=== PATIENT | female | born 1935 | race Caucasian/White ===

== ENCOUNTER 2020-03-08 09:34 | Outpatient (REF) | payer MEDICARE, OTHER, SELFPAY ==
[2020-03-08 10:48] LABS: Anion Gap 13 (12-20); Carbon Dioxide 31 mmol/L (22-29); Chloride 103 mmol/L (96-108); Potassium 3.6 mmol/l (3.3-5.1); Sodium 143 mmol/L (135-145)
== END 2020-03-08 09:35 | disposition home or self-care (01) ==
LOC: HO.10HDL 09:34
PROVIDERS: Visit Provider Internal Medicine
DX: E87.8 Other disorders of electrolyte and fluid balance, not elsewhere classified (principal)
CPT/HCPCS: 80051

== ENCOUNTER 2020-06-07 13:41 | Outpatient (REF) | payer MEDICARE, OTHER, SELFPAY ==
[2020-06-07 13:58] LABS: COVID-19 Test Negative (Negative)
== END 2020-06-07 13:42 | disposition home or self-care (01) ==
LOC: HO.LAB 13:41
PROVIDERS: PCP Internal Medicine; Visit Provider Internal Medicine
DX: Z20.822 Contact with and (suspected) exposure to COVID-19 (principal)
CPT/HCPCS: 36415; 87635; C9803

== ENCOUNTER 2020-12-05 13:01 | Outpatient (REF) | payer MEDICARE, OTHER, SELFPAY ==
--- NOTE | ~2020-12-05 | XR_ITS ---
EXAMINATION: XR SHOULDER, RIGHT XR HAND, RIGHT CLINICAL INFORMATION: Fall. COMPARISON: None TECHNIQUE: AP, Grashey, and scapular Y views of the right shoulder. AP, oblique, and lateral views of the right hand. FINDINGS: RIGHT SHOULDER: No acute fracture or dislocation. Moderate acromioclavicular marginal osteophytes. Small glenohumeral marginal osteophytes. Subacromial spurring. No osseous erosion. RIGHT HAND: No displaced fracture. No dislocation. Severe joint space narrowing with bony remodeling and large marginal osteophytes at the 1st carpometacarpal joint. More moderate osteoarthritis at the triscaphe joint. XR/XR hand RT min 3V IMPRESSION: Right shoulder: No acute fracture or dislocation. Moderate acromioclavicular and mild glenohumeral osteoarthritis. Right hand: No acute fracture or dislocation. Severe osteoarthritis at the 1st carpometacarpal joint with more moderate osteoarthritis at the triscaphe joint.
--- NOTE | ~2020-12-05 | XR_ITS ---
EXAMINATION: XR SHOULDER, RIGHT XR HAND, RIGHT CLINICAL INFORMATION: Fall. COMPARISON: None TECHNIQUE: AP, Grashey, and scapular Y views of the right shoulder. AP, oblique, and lateral views of the right hand. FINDINGS: RIGHT SHOULDER: No acute fracture or dislocation. Moderate acromioclavicular marginal osteophytes. Small glenohumeral marginal osteophytes. Subacromial spurring. No osseous erosion. RIGHT HAND: No displaced fracture. No dislocation. Severe joint space narrowing with bony remodeling and large marginal osteophytes at the 1st carpometacarpal joint. More moderate osteoarthritis at the triscaphe joint. XR/XR shoulder RT min 2V IMPRESSION: Right shoulder: No acute fracture or dislocation. Moderate acromioclavicular and mild glenohumeral osteoarthritis. Right hand: No acute fracture or dislocation. Severe osteoarthritis at the 1st carpometacarpal joint with more moderate osteoarthritis at the triscaphe joint.
== END 2020-12-05 13:02 | disposition home or self-care (01) ==
LOC: HO.HMGCX 13:01
PROVIDERS: PCP Internal Medicine; Visit Provider Internal Medicine
DX: M19.041 Primary osteoarthritis, right hand (principal); M19.011 Primary osteoarthritis, right shoulder; Z91.81 History of falling
CPT/HCPCS: 73030; 73130

== ENCOUNTER 2021-05-18 10:25 | Emergency (ER) | payer MEDICARE, OTHER, SELFPAY ==
[2021-05-18] VITALS (8 sets, daily range): BP systolic 132–162; BP diastolic 60–71; PULSE 85–110; RESP 16–20; TEMP 36.6–36.8; O2SAT 95–99; BMI 25.8
--- NOTE | ~2021-05-18 | XR_ITS ---
EXAMINATION: XR CHEST CLINICAL INFORMATION: Dizzy. Fall. COMPARISON: Chest radiograph 09/09/2016. TECHNIQUE: Frontal view of the chest was obtained. FINDINGS: The heart size is normal. An aortic composite stent graft is noted. No effusions or pneumothoraces. No focal pulmonary consolidation. Normal pattern of pulmonary vasculature. Diffuse osteopenia. Suture anchors within the left humeral head. Partially visualized cholecystectomy clips. XR/XR chest 1V IMPRESSION: *No acute cardiopulmonary abnormalities.
--- NOTE | ~2021-05-18 | CT_ITS ---
EXAMINATION: CT CERVICAL SPINE WITHOUT CONTRAST; UNENHANCED CT OF THE HEAD. CLINICAL INFORMATION: Fall. Dizziness. COMPARISON: MRI brain 01/19/2020. TECHNIQUE: Routine unenhanced CT of the head with multiple coronal and sagittal reformatted images; routine unenhanced CT of the cervical spine with multiple coronal and sagittal reformatted images. This CT examination was performed using dose optimization techniques as appropriate, variously including the following: *Automated exposure control *Adjustment of mA and/or kV according to patient size (this includes techniques or standardized protocols for targeted exams where dose is matched to indication/reason for exam; i.e. extremities or head) *Use of iterative reconstruction technique DLP: 912 mGy-cm FINDINGS: CT head: Moderate diffuse commensurate prominence of ventricles and sulci is noted. Mild subcortical and periventricular white matter patchy hypodensities are visualized. No intrarenal hemorrhage, tumors or acute infarcts are noted. Bilateral ocular lens extractions. No mastoid effusions. CT cervical spine: No fractures or acute appearing subluxations. Multilevel intervertebral disc space narrowing facet hypertrophy and endplate osteophytosis with moderate findings noted at C5-C6 and C6-C7 which are more pronounced than elsewhere in the cervical spine. The visualized lung apices are clear. Dense bilateral carotid bulb calcific atherosclerotic plaques. CT/CT head/brain wo con IMPRESSION: CT head: *No acute intracranial abnormalities. *Diffuse parenchymal volume loss and chronic small vessel ischemic changes. CT cervical spine: *No acute abnormalities. *Moderate multilevel chronic spondylosis. *Dense bilateral carotid bulb calcific atherosclerosis.
--- NOTE | ~2021-05-18 | CT_ITS ---
EXAMINATION: CT CERVICAL SPINE WITHOUT CONTRAST; UNENHANCED CT OF THE HEAD. CLINICAL INFORMATION: Fall. Dizziness. COMPARISON: MRI brain 01/19/2020. TECHNIQUE: Routine unenhanced CT of the head with multiple coronal and sagittal reformatted images; routine unenhanced CT of the cervical spine with multiple coronal and sagittal reformatted images. This CT examination was performed using dose optimization techniques as appropriate, variously including the following: *Automated exposure control *Adjustment of mA and/or kV according to patient size (this includes techniques or standardized protocols for targeted exams where dose is matched to indication/reason for exam; i.e. extremities or head) *Use of iterative reconstruction technique DLP: 912 mGy-cm FINDINGS: CT head: Moderate diffuse commensurate prominence of ventricles and sulci is noted. Mild subcortical and periventricular white matter patchy hypodensities are visualized. No intrarenal hemorrhage, tumors or acute infarcts are noted. Bilateral ocular lens extractions. No mastoid effusions. CT cervical spine: No fractures or acute appearing subluxations. Multilevel intervertebral disc space narrowing facet hypertrophy and endplate osteophytosis with moderate findings noted at C5-C6 and C6-C7 which are more pronounced than elsewhere in the cervical spine. The visualized lung apices are clear. Dense bilateral carotid bulb calcific atherosclerotic plaques. CT/CT cervical spine wo con IMPRESSION: CT head: *No acute intracranial abnormalities. *Diffuse parenchymal volume loss and chronic small vessel ischemic changes. CT cervical spine: *No acute abnormalities. *Moderate multilevel chronic spondylosis. *Dense bilateral carotid bulb calcific atherosclerosis.
--- NOTE | 2021-05-18 10:45 | ECG_ITS ---
Test Reason : fall Blood Pressure : / mmHG Vent. Rate : 087 BPM Atrial Rate : 087 BPM P-R Int : 124 ms QRS Dur : 128 ms QT Int : 428 ms P-R-T Axes : 040 012 046 degrees QTc Int : 515 ms Normal sinus rhythm Left bundle branch block Abnormal ECG No previous ECGs available Referred By: Catia Post Electronically Signed By:Elvis Webb
--- NOTE | 2021-05-18 10:48 | ED.FALL ---
HPI - Fall General Chief Complaint: Fall Stated Complaint: Fall Time Seen by Provider: 05/18/21 10:33 Source: patient and EMS Mode of arrival: EMS History of Present Illness HPI Narrative: 86-year-old female with a past medical history of HTN, HLD, migraines, degenerative joint disease, depression, GERD, on 81 mg of ASA daily, BIBA c/o episode of room spinning dizziness followed by fall [employer] SCI[employer] after using bathroom this morning with suspected head injury, no LOC. Patient reports neck and back pain, generalized weakness and dysuria. Admits was up using the bathroom then stood took couple steps, felt dizzy and fell, admits to similar symptoms in the past with UTI and vertigo. Admits dizziness intermittent with head movement, resolves with lying still. Denies headache, vision changes, CP/ SOB, urinary incontinence / retention, abdominal pain, nausea/ vomiting. Has not been ambulatory since incident, states baseline unable to get herself off ground MD complaint: fall Onset (ago): hour(s) Fall from: standing Related Data Home Medications Medication Instructions Recorded Confirmed uxpskrpksh-abzmunumwcsuz-pvmhqthp tab PO 05/18/21 50 mg-325 mg-40 mg tablet citalopram 10 mg tablet 1 tab PO DAILY 05/18/21 05/18/21 furosemide 40 mg tablet 1 tab PO DAILY 05/18/21 05/18/21 hydrocodone 7.5 mg-acetaminophen 1 tab PO TID PRN 05/18/21 05/18/21 325 mg tablet lorazepam 0.5 mg tablet 1 tab PO DAILY PRN 05/18/21 05/18/21 metoprolol succinate 50 mg 1 tab PO DAILY 05/18/21 tablet,extended release 24 hr omeprazole 20 mg capsule,delayed 1 cap PO DAILY 05/18/21 05/18/21 release oxybutynin chloride 15 mg mg PO 05/18/21 tablet,extended release 24 hr potassium chloride 10 mEq 1 tab PO DAILY 05/18/21 05/18/21 tablet,extended release rosuvastatin 10 mg tablet 1 tab PO BEDTIME 05/18/21 05/18/21 Previous Rx's Medication Instructions Recorded meclizine 25 mg tablet 25 mg PO TID PRN #14 tab 05/18/21 Allergies Allergy/AdvReac Type Severity Reaction Status Date / Time acetaminophen Allergy Unknown rapid Verified 09/22/18 00:00 [Tylenol-Codeine] heartbeat codeine [CODEINE] Allergy Unknown TACHYCARDIC Unverified 02/08/20 18:44 imipramine [IMIPRAMINE] Allergy Unknown RASH Unverified 02/08/20 18:44 Sulfa (Sulfonamide Allergy Unknown rash Verified 09/22/18 00:00 Antibiotics) sulfamethoxazole Allergy Unknown RASH Unverified 02/08/20 18:44 [From BACTRIM] trimethoprim [From BACTRIM] Allergy Unknown RASH Unverified 02/08/20 18:44 meperidine [From DEMEROL] AdvReac Unknown SPACED Unverified 02/08/20 18:44 OUT ,TACHYCARDIC Review of Systems Review of Systems: Constitutional:No Fever, No Chills, No Fatigue, No Malaise ENT/Mouth: No Ear Pain, No Nasal Congestion, No Hoarseness, No sore throat, No Rhinorrhea Eyes: No Eye Pain, No Swelling, No Redness, No Discharge, No Vision Changes Cardiovascular: No Chest Pain, No SOB, No Edema, No Palpitations Respiratory: No Cough, No Dyspnea Gastrointestinal: No Nausea, No Vomiting, No Diarrhea, No Constipation, No Abdominal pain Genitourinary: + Dysuria, No Urinary Frequency, No Hematuria, No Urinary Incontinence/retention, No Urinary Flow Changes Musculoskeletal: + joint pain, No Myalgias, No Joint Swelling Skin: No Skin Lesions, No rash Neuro: + Weakness, No Numbness, No Paresthesias, No Loss of Consciousness, + Dizziness, No Headache Yes all other systems are reviewed and are negative Neurologic: Denies Abnormal speech present [facility] Past Medical History Attestation statement: The following information was validated with the patient. Medical History Aortic valve disease Arthritis Edema Hypertension Surgical History History of back surgery Social History Social History Advance Directives: Yes Advance Directives Information Provided: No Advance Directives on File: No Physical Exam Vital Signs: Vital Signs: Last Vital Signs Temp 97.9 F 05/18/21 10:43 Pulse 89 05/18/21 16:33 Resp 18 05/18/21 16:33 BP 155/66 H 05/18/21 16:33 Pulse Ox 98 05/18/21 16:33 BMI result Body Mass Index 25.8 Const: General: cooperative, healthy appearing and no acute distress Orientation/consciousness: patient oriented x3 Limitations: no limitations HENMT: Head: Yes normal to inspection and Yes atraumatic Ears: hearing grossly normal bilaterally General nose exam: Normal external nose present Face and sinus: Yes normal facial exam Eyes: General: appearance normal, both eyes and all related structures Pupils: Equal, round and reactive pupils present EOM: EOMs intact bilaterally Neck: Other: no midline cervical spinous tenderness/step-off. + Left-sided paraspinal tenderness. C-collar in place Neck: Yes normal visual inspection Chest: Chest palpation & inspection: normal inspection of the chest Resp: Effort & Inspection: normal respiratory effort Auscultation: clear to auscultation bilaterally, no rales, no rhonchi and no wheezes Cardio: Rate: regular rate Heart sounds: S1 normal heart sound present and S2 normal heart sound present GI: Inspection: Yes normal to inspection Palpation (GI): Soft to palpation, nontender, no guarding and not rigid Back/Spine/Pelvis: Other: no midline thoracic/lumbar spinour ttp Skin: Rashes: no rashes Wounds: no wounds Neuro: General: patient oriented x3, tone normal, moves all extremities, no focal motor deficits and CN's II-XI intact bilaterally Cranial nerves: Yes CN's II-XII intact bilaterally and Yes Equal, round and reactive pupils present Cognition (Neuro): normal cognition Speech: No Abnormal speech present Motor exam (neuro): 5/5 motor strength present throughout, Pronator motor function not present and no tremor noted Coordination: fwzbfz-[id number]-makn test normal Romberg Test: Negative Extrem: Other: + chronic bilateral LE edema > Right (chronic) General: Yes normal to inspection Course Course Course Narrative: -1150-- no leukocytosis. H&H 10.1/31.2, lower than priors from 2019 > will obtain occult stool -1244--CT head/brain wo con / CT cervical spine wo con IMPRESSION: CT head: *No acute intracranial abnormalities. *Diffuse parenchymal volume loss and chronic small vessel ischemic changes. ? CT cervical spine: *No acute abnormalities. *Moderate multilevel chronic spondylosis. *Dense bilateral carotid bulb calcific atherosclerosis.? -1246-- initial troponin 52 > will obtain 3 hour repeat. Labs otherwise unremarkable. COVID-19 negative >> brown stool noted on rectal, upon rolling patient/head movement dizziness elicited -occult stool negative -151-- patient ambulating steadily in the ED with walker, denies dizziness at present after Meclizine. Offered PT/ case management as patient lives home alone, patient refused reports children help care for her -1524-- repeat troponin without 50% rise, mi unlikely. On re-evaluation patient asymptomatic. UA negative. Patient is safe for discharge at this time -1616-- patient's son called, reports patient has had multiple falls, more than patient was willing to come forward with during evaluation over the past several days. He reports 3 falls on and 2-3 falls on Wednesday, there is concern for patient safety at home. Pending orthostatic vital signs, son & myself are going to try to convince patient to stay for PT/case management evaluation - orthostatic vital signs negative. Patient now agreeable to stay for PT/case management eval. 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 Dizziness elicited on head movement. Patient reports neck and back pain, generalized weakness and dysuria. On exam vital signs stable, NAD, C-collar in place, no midline spinous tenderness, no focal neuro deficits. Concern for ICH/fractures vs UTI vs metabolic or infectious etiologies vs BPPV vs ACS. lower concern for CVA/TIA plan: EKG, labs, UA, CXR, head/C-spine CT, re-evaluate Medical Records Attestation: I reviewed the patient's medical records. Lab Data Attestation: I reviewed the patient's lab results. Result diagrams: 05/18/21 11:37 05/18/21 11:36 Labs: Lab Results 05/18/21 05/18/21 05/18/21 Range/Units 11:33 11:36 11:36 WBC (4.8-10.8) X10*3/uL RBC (4.20-5.50) X10*6/uL Hgb (12.0-16.0) g/dl Hct (37.0-47.0) % MCV (80.0-98.0) fL MCH (27.0-33.0) pg MCHC (31.0-35.0) g/dl RDW (11.0-16.0) % Plt Count (160-400) X10*3/uL MPV (9.4-12.3) fL Immature Gran % (Auto) (0.0-0.4) % Neut % (Auto) (45-73) % Lymph % (Auto) (20-40) % [place] % (Auto) (2-11) % Eos % (Auto) (0-4) % Baso % (Auto) (0-2) % Lymph # (Auto) (1.2-4.9) X10*3/uL [place] # (Auto) (0.1-1.2) X10*3/uL Eos # (Auto) (0.0-0.4) X10*3/uL Baso # (Auto) (0.0-0.2) X10*3/uL Abs Immat Gran (auto) (0.00-0.03) X10*3/uL Absolute Neuts (auto) (2.0-8.3) x10*3/uL Absolute Nucleated RBC (0.0-0.012) X10*3/uL Nucleated RBC % (auto) (0.0-0.2) /100WBC Sodium 141 (135-145) mmol/L Potassium 4.1 (3.3-5.1) mmol/L Chloride 107 (96-108) mmol/L Carbon Dioxide 26 (22-29) mmol/L Anion Gap 12 (12-20) BUN 21 H (9-16) mg/dL Creatinine 1.01 (0.5-1.4) mg/dL Estim Creat Clear Calc 43.8 Estimated GFR 52 Random Glucose 120 H (60-115) mg/dL Calcium 9.3 (8.4-10.2) mg/dL Magnesium 1.6 (1.6-2.6) mg/dL Total Bilirubin 0.8 (0.0-1.0) mg/dL Direct Bilirubin 0.4 (0.0-0.5) mg/dL AST 23 (5-31) U/L ALT 19 (0-31) U/L Alkaline Phosphatase 82 (39-117) U/L Troponin I High Sens 52.0 H* (<3.5-17.0) ng/L B-Natriuretic Peptide 42 (<100) pg/mL Total Protein 6.4 L (6.5-8.0) g/dL Albumin 3.5 (3.5-5.0) g/dL Urine Color Urine Appearance Urine pH (5.0-8.0) Ur Specific [place] (1.005-1.025) Urine Protein (NEG-TRACE) MG/DL Urine Glucose (UA) (NEG) MG/DL Urine Ketones (NEG) MG/DL Urine Blood (NEG) Urine Nitrite (NEG) Ur Leukocyte Esterase (NEG) Stool Occult Blood (NEGATIVE) COVID-19 (ELIANE) Negative (Negative) COVID-19 Clin Com See Note 05/18/21 05/18/21 05/18/21 Range/Units 11:37 12:54 14:54 WBC 7.4 (4.8-10.8) X10*3/uL RBC 3.50 L (4.20-5.50) X10*6/uL Hgb 10.1 L (12.0-16.0) g/dl Hct 31.2 L (37.0-47.0) % MCV 89.1 (80.0-98.0) fL MCH 28.9 (27.0-33.0) pg MCHC 32.4 (31.0-35.0) g/dl RDW 14.8 (11.0-16.0) % Plt Count 208 (160-400) X10*3/uL MPV 8.8 L (9.4-12.3) fL Immature Gran % (Auto) 0.3 (0.0-0.4) % Neut % (Auto) 73.0 (45-73) % Lymph % (Auto) 11.9 L (20-40) % [place] % (Auto) 11.3 H (2-11) % Eos % (Auto) 3.1 (0-4) % Baso % (Auto) 0.4 (0-2) % Lymph # (Auto) 0.9 L (1.2-4.9) X10*3/uL [place] # (Auto) 0.8 (0.1-1.2) X10*3/uL Eos # (Auto) 0.2 (0.0-0.4) X10*3/uL Baso # (Auto) 0.0 (0.0-0.2) X10*3/uL Abs Immat Gran (auto) 0.02 (0.00-0.03) X10*3/uL Absolute Neuts (auto) 5.4 (2.0-8.3) x10*3/uL Absolute Nucleated RBC 0.000 (0.0-0.012) X10*3/uL Nucleated RBC % (auto) 0.0 (0.0-0.2) /100WBC Sodium (135-145) mmol/L Potassium (3.3-5.1) mmol/L Chloride (96-108) mmol/L Carbon Dioxide (22-29) mmol/L Anion Gap (12-20) BUN (9-16) mg/dL Creatinine (0.5-1.4) mg/dL Estim Creat Clear Calc Estimated GFR Random Glucose (60-115) mg/dL Calcium (8.4-10.2) mg/dL Magnesium (1.6-2.6) mg/dL Total Bilirubin (0.0-1.0) mg/dL Direct Bilirubin (0.0-0.5) mg/dL AST (5-31) U/L ALT (0-31) U/L Alkaline Phosphatase (39-117) U/L Troponin I High Sens 53.7 H* (<3.5-17.0) ng/L B-Natriuretic Peptide (<100) pg/mL Total Protein (6.5-8.0) g/dL Albumin (3.5-5.0) g/dL Urine Color Urine Appearance Urine pH (5.0-8.0) Ur Specific [place] (1.005-1.025) Urine Protein (NEG-TRACE) MG/DL Urine Glucose (UA) (NEG) MG/DL Urine Ketones (NEG) MG/DL Urine Blood (NEG) Urine Nitrite (NEG) Ur Leukocyte Esterase (NEG) Stool Occult Blood NEGATIVE (NEGATIVE) COVID-19 (ELIANE) (Negative) COVID-19 Clin Com 05/18/21 Range/Units 14:54 WBC (4.8-10.8) X10*3/uL RBC (4.20-5.50) X10*6/uL Hgb (12.0-16.0) g/dl Hct (37.0-47.0) % MCV (80.0-98.0) fL MCH (27.0-33.0) pg MCHC (31.0-35.0) g/dl RDW (11.0-16.0) % Plt Count (160-400) X10*3/uL MPV (9.4-12.3) fL Immature Gran % (Auto) (0.0-0.4) % Neut % (Auto) (45-73) % Lymph % (Auto) (20-40) % [place] % (Auto) (2-11) % Eos % (Auto) (0-4) % Baso % (Auto) (0-2) % Lymph # (Auto) (1.2-4.9) X10*3/uL [place] # (Auto) (0.1-1.2) X10*3/uL Eos # (Auto) (0.0-0.4) X10*3/uL Baso # (Auto) (0.0-0.2) X10*3/uL Abs Immat Gran (auto) (0.00-0.03) X10*3/uL Absolute Neuts (auto) (2.0-8.3) x10*3/uL Absolute Nucleated RBC (0.0-0.012) X10*3/uL Nucleated RBC % (auto) (0.0-0.2) /100WBC Sodium (135-145) mmol/L Potassium (3.3-5.1) mmol/L Chloride (96-108) mmol/L Carbon Dioxide (22-29) mmol/L Anion Gap (12-20) BUN (9-16) mg/dL Creatinine (0.5-1.4) mg/dL Estim Creat Clear Calc Estimated GFR Random Glucose (60-115) mg/dL Calcium (8.4-10.2) mg/dL Magnesium (1.6-2.6) mg/dL Total Bilirubin (0.0-1.0) mg/dL Direct Bilirubin (0.0-0.5) mg/dL AST (5-31) U/L ALT (0-31) U/L Alkaline Phosphatase (39-117) U/L Troponin I High Sens (<3.5-17.0) ng/L B-Natriuretic Peptide (<100) pg/mL Total Protein (6.5-8.0) g/dL Albumin (3.5-5.0) g/dL Urine Color YELLOW Urine Appearance HAZY Urine pH 6.0 (5.0-8.0) Ur Specific [place] 1.020 (1.005-1.025) Urine Protein NEG (NEG-TRACE) MG/DL Urine Glucose (UA) NEG (NEG) MG/DL Urine Ketones 5 (NEG) MG/DL Urine Blood NEG (NEG) Urine Nitrite NEG (NEG) Ur Leukocyte Esterase NEG (NEG) Stool Occult Blood (NEGATIVE) COVID-19 (ELIANE) (Negative) COVID-19 Clin Com ECG Data Attestation: I personally reviewed and interpreted this ECG as follows: ECG interpretation date: 05/18/21 ECG interpretation time: 11:22 Interpretation: EKG normal sinus rhythm with left bundle-branch block rate of 87, IL interval 124, artifact present. No STEMI Discharge Plan Discharge Clinical Impression: Dizziness, Fall Patient Disposition: Home, Self-Care Instructions: Dizziness (ED), Fall Prevention (ED) Additional Instructions: your blood work, urine, and imaging studies were reassuring today in the emergency department. Please stay hydrated at home please follow-up with your primary care doctor if you develop new constant worsening dizziness, headache, chest pain, shortness of breath, or repeated falls return to the ED immediately take meclizine as needed for dizziness Prescriptions: New meclizine 25 mg tablet 25 mg PO TID PRN (Reason: dizziness) Qty: 14 RF: 0 No Action furosemide 40 mg tablet 1 tab PO DAILY RF: 0 oxybutynin chloride 15 mg tablet extended release 24 hr PO RF: 0 metoprolol succinate 50 mg tablet extended release 24 hr 1 tab PO DAILY RF: 0 citalopram 10 mg tablet 1 tab PO DAILY RF: 0 potassium chloride 10 mEq tablet extended release 1 tab PO DAILY RF: 0 rtfzncnpos-nqwkbmyrcqjit-yqre 50-325-40 mg tablet PO RF: 0 lorazepam 0.5 mg tablet 1 tab PO DAILY PRN (Reason: Anxiety) RF: 0 hydrocodone-acetaminophen 7.5-325 mg tablet 1 tab PO TID PRN (Reason: Pain (Scale Score 4-6)) RF: 0 omeprazole 20 mg capsule,delayed release(DR/EC) 1 cap PO DAILY RF: 0 rosuvastatin 10 mg tablet 1 tab PO BEDTIME RF: 0 Referrals: Efra Sue MD [Primary Care Provider] - 2 days
[2021-05-18 11:41] LABS: MANUAL DIFF FLAG NO
[2021-05-18 11:43] LABS: Basophils Percent Auto 0.4 % (0-2); Eosinophils Absolute Auto 0.2 X10*3/uL (0.0-0.4); Eosinophils Percent Auto 3.1 % (0-4); Hematocrit 31.2 % (37.0-47.0); Hemoglobin 10.1 g/dl (12.0-16.0); Imm Gran Abs Auto 0.02 X10*3/uL (0.00-0.03); Imm Gran Pct Auto 0.3 % (0.0-0.4); Lymphocytes Absolute Auto 0.9 X10*3/uL (1.2-4.9); Lymphocytes Percent Auto 11.9 % (20-40); Mean Corpuscular HGB Conc 32.4 g/dl (31.0-35.0); Mean Corpuscular Hemoglobin 28.9 pg (27.0-33.0); Mean Corpuscular Volume 89.1 fL (80.0-98.0); Mean Platelet Volume 8.8 fL (9.4-12.3); Monocytes Absolute Auto 0.8 X10*3/uL (0.1-1.2); Monocytes Percent Auto 11.3 % (2-11); Neutrophils Absolute Auto 5.4 x10*3/uL (2.0-8.3); Platelet Count 208 X10*3/uL (160-400); Red Cell Distribution Width 14.8 % (11.0-16.0); White Blood Count 7.4 X10*3/uL (4.8-10.8)
[2021-05-18 12:00] LABS: Alanine Aminotransferase 19 U/L (0-31); Albumin Level 3.5 g/dL (3.5-5.0); Alkaline Phosphatase 82 U/L (39-117); Anion Gap 12 (12-20); Aspartate Amino Transferase 23 U/L (5-31); Bilirubin Direct 0.4 mg/dL (0.0-0.5); Bilirubin Total 0.8 mg/dL (0.0-1.0); Blood Urea Nitrogen 21 mg/dL (9-16); Calcium 9.3 mg/dL (8.4-10.2); Carbon Dioxide 26 mmol/L (22-29); Chloride 107 mmol/L (96-108); Creatinine Clr Calc Pharmacy 43.8; Estimated Glomerular Filt Rate 52; Glucose Random 120 mg/dL (60-115); Magnesium 1.6 mg/dL (1.6-2.6); Potassium 4.1 mmol/L (3.3-5.1); Sodium 141 mmol/L (135-145); Total Protein 6.4 g/dL (6.5-8.0)
[2021-05-18 12:02] LABS: COVID-19 Test Negative (Negative)
[2021-05-18 12:15] LABS: B Type Natriuretic Peptide 42 pg/mL (<100)
[2021-05-18 12:59] LABS: OBS Int Ctl Valid YES; OBS1 NEGATIVE (NEGATIVE)
[2021-05-18] MEDS: Meclizine HCl 25 MG TABLET PO (14:05)
[2021-05-18] MEDS: 0.9 % Sodium Chloride 500 ML IV (14:13)
[2021-05-18 15:01] LABS: Appearance Urine HAZY; Color Urine YELLOW; Glucose Urine UA NEG (NEG); Leukocyte Esterase Urine NEG (NEG); Nitrite Urine NEG (NEG); Urine Blood NEG (NEG); Urine Ketones 5 MG/DL (NEG); Urine Protein NEG (NEG-TRACE)
[2021-05-18 15:26] LABS: Troponin-I High Sensitivity 53.7 ng/L (<3.5-17.0)
[2021-05-18] MEDS: oxyCODONE HCl Immed Release 5 MG TABLET PO ×2 (17:30→22:47)
--- NOTE | 2021-05-18 22:41 | PC.NURSE ---
notified that pt is requesting pain medication.
[2021-05-18] MEDS: Acetaminophen 325 MG TABLET 975 MG PO (22:47)
--- NOTE | 2021-05-18 22:51 | PC.NURSE ---
Pt medicated per MAR, assisted into POC.
[2021-05-19 01:20] VITALS: BP 118/47; PULSE 99; RESP 18; TEMP 36.8; O2SAT 95
[2021-05-19 04:35] VITALS: BP 128/58; PULSE 80; RESP 18; TEMP 36.6; O2SAT 97
[2021-05-19 07:48] VITALS: BP 128/58; PULSE 80; O2SAT 97
[2021-05-19 08:41] VITALS: BP 158/70; PULSE 88; RESP 18; O2SAT 98
--- NOTE | 2021-05-19 08:41 | MHC.CM.PN ---
Addendum entered by Greta Taylor 05/19/21 14:10: CM MET WITH PT WHO IS NOW AWARE HER SON IS NOT GOING TO BE PICKING HER UP SHE REPORTS SHE WILL TRY CALLING SOME OTHER FAMILY MEMBERS CM REMINDED HER THAT SHE WILL ONLY HAVE HOME THERAPY A COUPLE DAYS A WEEK AT MOST HOWEVER SHE STILL INSISTS SHE IS GOING HOME. PT WILL DC HOME TODAY WITH [facility] Addendum entered by Greta Taylor 05/19/21 13:47: [facility] IS OFFERING A BED CM CALLED PTS SON, SHITAL [phone]. SHITAL REPORTS HE TRIED TO CALL THE PT AND SHE DID NOT ANSWER CM INFORMED HIM OF BED OFFER AND INFORMED HIM THIS WOULD BE DISCUSSED WITH PT CM INFORMED PT OF BED OFFER, PT REPORTS SHE IS NOT GOING THERE SHE REPORTS SHE IS NOT GOING TO GO TO ANY REHAB AND IS ONLY WILLING TO GO HOME SHE REPORTS SHE DID NOT HAVE HER PHONE CHARGED THAT IS WHY SHE DID NOT ANSWER WHEN SHITAL CALLED SHE PLANS TO CALL SHITAL FOR A RIDE ONCE HER DC PAPERS ARE READY CM CALLED PTS SON BACK TO INFORM HIM OF PTS DECISION SHITAL REPORTS HE IS NOT GOING TO PICK THE PT UP HE DOES NOT FEEL SHE IS MAKING THE SAFEST DECISION HE WILL CALL HER TO INFORM HER CM WILL ALSO INFORM HER AND DISCUSS OTHER TRANSPORT OPTIONS Addendum entered by Greta Taylor 05/19/21 12:47: CM RECEIVED A T/C FROM PTS SON, SHITAL. HE REPORTS THE PT CALLED HIM TO PICK HER UP HOWEVER HE IS WORRIED SHE HAS FALLEN SEVERAL TIMES RECENTLY CM EXPLAINED THE PT HAD ASKED THAT HE NOT BE CONTACTED. SHITAL REPORTS HE WILL CALL THE PT TO FURTHER DISCUSS REHAB, HE ASKS THAT REFERRALS BE PLACED ([facility], [facility]) HE REPORTS THE PT LIVES ALONE AND ALTHOUGH HIS SISTER IS THERE AT THIS TIME, SHE WILL BE LEAVING BY WEDNESDAY, SO THE PT WILL BE ALONE AGAIN CM MADE REQUESTED REFERRALS SHITAL WILL SPEAK TO PT AND THEN UPDATE CM Addendum entered by Greta Taylor 05/19/21 12:21: [facility] UNABLE TO OFFER A BED INDICATING THEY DID NOT FEEL PT IS ELIGIBLE FOR THAT LOC PT INFORMED AND REPORTS SHE IS NOT WILLING TO GO ANYWHERE ELSE SHE REPORTS SHE IS AGREEABLE TO HOME PT PT ALSO REPORTS HER DAUGHTER IS STAYING WITH HER AT THIS TIME SO SOMEONE WILL BE THERE. PT REPORTS SHE WILL CONTACT HER SON TO PICK HER UP WHEN READY PT WILL DC HOME TODAY WITH [facility] FOR PT FAMILY TO TRANSPORT Original Note: CM CONSULT RECEIVED FOR THIS PT WHO PRESENTED AFTER DIZZINESS AND SUBSEQUENT FALL. CM MET WITH PT WHO INITIALLY REPORTED SHE IS NOT WILLING TO GO ANYWHERE BUT HOME CM DISCUSSED SAFETY CONCERNS AND PTS RECOMMENDATION OF ACUTE REHAB PT REPORTS SHE HAS BEEN TO [facility] IN THE PAST AND THEY KEPT HER FOR THREE MONTHS CM EXPLAINED THE DIFFERENCES BETWEEN SHORT TERM AND ACUTE REHAB PT REPORTS SHE WOULD ONLY BE WILLING TO CONSIDER [facility] SHE LIVES IN [place] PT IS AGREEABLE TO A REFERRAL BEING SENT TO [facility].
[2021-05-19] MEDS: Omeprazole 20 MG CAPSULE.DR PO (08:43)
[2021-05-19] MEDS: Furosemide 40 MG TABLET PO (08:43)
[2021-05-19] MEDS: Escitalopram Oxalate 5 MG TABLET PO (08:43)
[2021-05-19] MEDS: HYDROcodone Bit/Acetam 7.5/325 TABLET 1 TAB PO ×2 (08:49→20:39)
--- NOTE | 2021-05-19 08:53 | PC.NURSE ---
Pt received: Pt AOX4 and c/o L sided mandible pain with L ear and L lateral neck pain. Pt states pain is due to problems with teeth. Heart sounds normal and dimished lung sounds. Pt abd soft and nontender. B/L LE 2+ edema noted. Non-pitted.
--- NOTE | 2021-05-19 10:57 | PC.NURSE ---
Physical Therapy called and made aware that pt needs to be need by their services. Pt already spoke with case management and refusing STR or [facility] - so pt will go home with services. RN will continue to monitor.
--- NOTE | 2021-05-19 13:09 | PC.NURSE ---
Delay in pt care as pt's son called and stated pt does not have any family to take care of her at home until Wednesday. Pt's attempting to talk to pt herself and convince her for STR. Pending feedback from conversation. Until then, pt may not be discharged despite received order. RN will continue to monitor.
[2021-05-19 16:19] VITALS: BP 180/70; PULSE 98; RESP 16; TEMP 36.8; O2SAT 96
--- NOTE | 2021-05-19 17:09 | MHC.CM.ED ---
Addendum entered by Doretha Diaz 05/19/21 17:58: Pt cell phone charged. Pt spoke with daughter, Danii on speaker phone. Danii refuses to apple picking supervisor patient to return home, as she feels her mother needs rehab. Pt is now agreeable to referrals to [facility]. Pt understands that she needs rehab and is agreeable to stay overnight with hopeful bed offer in the morning. Pt states she doesn't like how he son handled this situation. Referrals had been already placed at [facility]. [facility] states pt doesn't meet acute needs. [facility] states they can clinically accept her pending bed availability. CM requested bed offer and that pt will accept if offered. Both Lisa AUSTIN and Luz Elena MIRANDA aware of above. CM did not notify home care, as bed offer has not yet been made. [facility] has accepted pt. CM will continue to follow for d/c needs. Original Note: TARAN Hernandes spoke with son/HCP Carlos Light, who assures CM that patient can get into her home, and he will go there to be sure the door is open, but he will not pick her up. This CM met with patient. Pt is adamant to go home. Cannot call her daughter, as her phone is . CM will charge her phone, so she can call her daughter for a ride home. RN is aware. CM will continue to follow pt for discharge home.
--- NOTE | 2021-05-19 17:44 | PC.NURSE ---
Pending D/C on pt as pt needs ride home. manager home Greta and Doretha have been attempting to get ride for pt, but pt's son refuses as son wants pt to go to rehab. And pt only wants to go to one detention facility but that facility has no beds available. Pt's daughter eventually called stated that pt needs to go to rehab. So pt now agreeing to go to another detention facility. manager home will now attempt to get bed for pt. RN will continue to monitor.
[2021-05-19] MEDS: Atorvastatin Calcium 40 MG TABLET PO (20:39)
[2021-05-19 23:17] VITALS: BP 154/63; PULSE 94; RESP 18; TEMP 36.8; O2SAT 96
[2021-05-20 00:23] VITALS: RESP 18; O2SAT 98
[2021-05-20] MEDS: Furosemide 40 MG TABLET PO (08:37)
[2021-05-20] MEDS: Escitalopram Oxalate 5 MG TABLET PO (08:38)
[2021-05-20] MEDS: Omeprazole 20 MG CAPSULE.DR PO (08:38)
--- NOTE | 2021-05-20 09:13 | MHC.CM.ED ---
Patient remains in ER. [facility] will know if they have a bed available for patient after their 930am meeting. Continue to monitor for d/c needs.
[2021-05-20 11:34] VITALS: BP 160/72; PULSE 100; RESP 18; TEMP 36.7; O2SAT 97
--- NOTE | 2021-05-20 11:35 | PC.NURSE ---
patient a&o, pt requesting her apple phone to be charged- it has been plugged in with this nurses production shift supervisor, vitals obtained/stable, pt offers no c/o pain or discomfort, will continue to monitor.
--- NOTE | 2021-05-20 12:46 | MHC.CM.ED ---
Addendum entered by Madelyn Byrne 05/20/21 14:39: [facility] can offer a bed today pending results of COVID PCR and paper scripts for Lorazepam and Fioricet. Discussed offer with pt - I'm not going there. I've thought about it and I've decided no No further reasons given by pt who became fiesty and asked that the topic be dismissed. Discussed no bed availability at acute rehab with a request from [facility] for a repeat PT note on 05/21 for consideration. Pt agrees to wait until 05/21 - if [facility] is unable to offer a bed, pt states she is returning to home. Pt does not have an activated HCP and per discussion with ED staff, is able to make her own decisions. Pt has been accepted by [facility] should she be able to return to home. Anthony sent to PT requesting an updated note to submit to [facility]. Pt has been vaxed with a booster 3 weeks ago. Original Note: [facility] does not have a bed available today - they are requesting an updated PT note for any possible offer on 05/21 to ensure pt is appropriate for acute rehab. CM to explore STR at SNF level: [facility] 1st choice given by pt and nothing else Call placed to son to inquire on ability for pt to have 24/7 care. Son states this is not financially feasible nor can he assist her with additional care needs. CM to follow for d/c
[2021-05-20 14:25] VITALS: BP 151/71; PULSE 116; RESP 16; TEMP 37.3; O2SAT 96
[2021-05-20] MEDS: HYDROcodone Bit/Acetam 7.5/325 TABLET 1 TAB PO (20:03)
[2021-05-20] MEDS: Atorvastatin Calcium 40 MG TABLET PO (20:04)
[2021-05-20 23:46] VITALS: BP 136/61; PULSE 91; RESP 16; TEMP 37.2; O2SAT 96
[2021-05-21 01:35] VITALS: BP 149/64; PULSE 78; RESP 16; TEMP 37.1; O2SAT 96
[2021-05-21 04:00] VITALS: RESP 16
[2021-05-21 07:30] VITALS: BP 155/74; PULSE 85; RESP 15; TEMP 36.9; O2SAT 97
[2021-05-21 07:35] VITALS: BP 155/74; PULSE 85; O2SAT 97
--- NOTE | 2021-05-21 08:07 | MHC.CM.PN ---
Addendum entered by Greta Taylor 05/21/21 08:49: CM INFORMED PT [facility] IS OFFERING A BED FOR TODAY SHE REPORTS BEING AGREEABLE AND IS AWARE SHE WILL GO VIA BLS AT 1300 HOURS. PTS RN NOTIFIED VIA [facility]. Addendum entered by Greta Taylor 05/21/21 08:26: [facility] IS ABLE TO OFFER A BED TODAY PT WILL BE SCHEDULED FOR BLS TRANSPORT AT 1300 HOURS. TARAN CALLED PTS DAUGHTER, GRICEL AND INFORMED HER OF DC PLAN SHE REPORTS SHE WILL INFORM PTS SON/HCP, SHITAL. Original Note: TARAN RECEIVED A T/C FROM PTS DAUGHTER, GRICEL WHO REPORTS SHE IS WORRIED BECAUSE THE PT WILL NOT BE ABLE TO STAY IN THE ED MUCH LONGER AND IS NOT SAFE TO GO HOME. TARAN EXPLAINED THAT THE [facility], [facility], HAS NOT YET PROVIDED A BED STATUS UPDATE TODAY, HOWEVER IF THEY STILL DO NOT HAVE A BED, THE PT HAS STATED SHE WILL NOT WAIT ANY LONGER AND WILL GO HOME. GRICEL REPORTS THE PT HAS FALLEN AT LEAST 5-6 TIMES RECENTLY AND IS NOT SAFE, SHE REPORTS SHE ALSO SEEMS CONFUSED SOMETIMES. GRICEL WAS MADE AWARE THAT [facility] WAS OFFERING A STR BED HOWEVER THE PT REFUSED. CURRENT PLAN IS AR AT [facility] PENDING BED AVAILABILITY IF [facility] DOES NOT HAVE A BED TODAY, TARAN AND PTS DAUGHTER WILL ENCOURAGE STR AT [facility]. GRICEL: [phone]
[2021-05-21] MEDS: Omeprazole 20 MG CAPSULE.DR PO (09:29)
[2021-05-21] MEDS: Escitalopram Oxalate 5 MG TABLET PO (09:29)
[2021-05-21] MEDS: Furosemide 40 MG TABLET PO (09:30)
--- NOTE | 2021-05-21 09:34 | PC.NURSE ---
pt awake and eating breakfast aware of pending transfer to [facility] for 1300. medicated as charted pt refused full dose of lasix, 20mg provided.
== END 2021-05-21 13:30 | disposition home or self-care (01) ==
PROVIDERS: Physician Assistant; Emergency Provider Emergency Medicine Emergency Medical Services; PCP Internal Medicine
DX: R42 Dizziness and giddiness (principal); Z20.822 Contact with and (suspected) exposure to COVID-19; Z91.81 History of falling; R30.0 Dysuria; R60.0 Localized edema; I10 Essential (primary) hypertension
CPT/HCPCS: 36415; 51701; 70450; 71045; 72125; 80048; 80076; 81003; 82272; 83735; 83880; 84484; 85025; 87635; 93005; 96360; 97110; 97116; 97162; 99285

== ENCOUNTER 2021-06-21 15:52 | Inpatient (IN) | payer MEDICARE, OTHER, SELFPAY ==
--- NOTE | ~2021-06-21 | XR_ITS ---
EXAMINATION: XR CHEST CLINICAL INFORMATION: Fever COMPARISON: 05/18/2021 TECHNIQUE: Portable 9:44 PM view of the chest was obtained. FINDINGS: Progressive elevation right hemidiaphragm. TAVR changes noted. Lungs are grossly clear otherwise. Heart and mediastinum normal. XR/XR chest 1V IMPRESSION: Progressive elevation right hemidiaphragm. Otherwise unremarkable exam.
--- NOTE | ~2021-06-21 | US_ITS ---
EXAMINATION: US VENOUS ULTRASOUND WITH DOPPLER LOWER EXTREMITY, BILATERAL CLINICAL INFORMATION: Leg swelling COMPARISON: 03/12/2017 TECHNIQUE: Ultrasound of the deep veins is performed from the hip to the calf with compression sonography and color and pulse Doppler assessment. Spectral analysis with color-flow imaging is performed. FINDINGS: RIGHT: There is normal venous compression and respiratory variation and augmented flow. The visualized common femoral vein, superficial femoral vein, profunda femoral vein, popliteal vein, and the trifurcation region shows no evidence of deep venous thrombosis. There is no significant popliteal fossa cyst. Subcutaneous edema is present within the calf. There is a prominent lymph node in the right proximal thigh measuring up to 1 cm in short axis, likely reactive. LEFT: There is normal venous compression and respiratory variation and augmented flow. The visualized common femoral vein, superficial femoral vein, profunda femoral vein, popliteal vein, and the trifurcation region shows no evidence of deep venous thrombosis. There is no significant popliteal fossa cyst. Subcutaneous edema is present in the calf. If the patient's symptoms persist, followup ultrasound in 5 days 7 days might be of value to exclude proximal propagation from a non-visualized calf vein. US/US venous duplex LE BI IMPRESSION: No DVT demonstrated in the bilateral lower extremities.
[2021-06-21 16:06] VITALS: BP 131/100; BP 160/64; PULSE 105; PULSE 106; RESP 20; TEMP 36.8; O2SAT 96; O2SAT 97; BMI 28.0
[2021-06-21 16:24] VITALS: BP 159/72; PULSE 100; RESP 17; TEMP 36.8; O2SAT 95
--- NOTE | 2021-06-21 16:54 | ED_ITS ---
HPI - Weakness General Chief complaint: Weakness Stated complaint: Weakness Unable to ambulate Time Seen by Provider: 06/21/21 16:53 Source: patient Mode of arrival: EMS History of Present Illness HPI Narrative: Patient 86 years old with history of hypertension hyperlipidemia migraines degenerative joint disease depression GERD comes here for increased weakness and leg swelling. According to patient's son today she was sitting on the recliner could not get up as was feeling very weak denies any complaints , according to EMS son does not feel that patient is safe at home but patient refusing to go to usp patient does have chronic leg swelling denies any shortness of breath fever or chills Related Data Home Medications Medication Instructions Recorded Confirmed [id number] 1 tab PO Q6H PRN 05/18/21 06/21/21 50 mg-325 mg-40 mg tablet citalopram 10 mg tablet 10 mg PO DAILY 05/18/21 06/21/21 furosemide 40 mg tablet 40 mg PO DAILY 05/18/21 06/21/21 hydrocodone 7.5 mg-acetaminophen 1 tab PO TID PRN 05/18/21 06/21/21 325 mg tablet lorazepam 0.5 mg tablet 1 tab PO DAILY PRN 05/18/21 06/21/21 metoprolol succinate 50 mg 50 mg PO DAILY 05/18/21 06/21/21 tablet,extended release 24 hr omeprazole 20 mg capsule,delayed 20 mg PO DAILY 05/18/21 06/21/21 release oxybutynin chloride 15 mg 30 mg PO DAILY 05/18/21 06/21/21 tablet,extended release 24 hr potassium chloride 10 mEq 1 tab PO DAILY 05/18/21 06/21/21 tablet,extended release rosuvastatin 10 mg tablet 10 mg PO BEDTIME 05/18/21 06/21/21 magnesium oxide 400 mg (241.3 mg 1 tab PO DAILY 06/21/21 06/21/21 magnesium) tablet Previous Rx's Medication Instructions Recorded meclizine 25 mg tablet 25 mg PO TID PRN #14 tab 05/18/21 Allergies Allergy/AdvReac Type Severity Reaction Status Date / Time acetaminophen Allergy Unknown rapid Verified 05/18/21 22:42 [Tylenol-Codeine heartbeat ] codeine Allergy Unknown TACHYCARDIC Unverified 05/18/21 22:42 [CODEINE] imipramine Allergy Unknown RASH Unverified 05/18/21 22:42 [IMIPRAMINE] Sulfa Allergy Unknown rash Verified 05/18/21 22:42 (Sulfonamide Antibiotics) sulfamethoxazole Allergy Unknown RASH Unverified 05/18/21 22:42 [From BACTRIM] trimethoprim Allergy Unknown RASH Unverified 05/18/21 22:42 [From BACTRIM] meperidine [From AdvReac Unknown SPACED Unverified 05/18/21 22:42 DEMEROL] OUT ,TACHYCARDI C Review of Systems Verdana 4l Review of Systems: Yes all other systems are reviewed and Verdana 4d are negative [facility] Past Medical History Medical History Aortic valve disease Arthritis Edema Hypertension Surgical History History of back surgery Social History Social History Alcohol intake: never Patient Tobacco Use Status: Never used Tobacco Use of substances other than those prescribed or required for medical reasons: No Advance Directives: Yes Advance Directives on File: Yes Advance Directives Date on File: 05/20/21 Physical Exam Verdana 4l Vital Signs: Verdana 4d Verdana 4d Vital Signs: Verdana 4d Verdana 4Bd Last Vital Signs Verdana 4d Sprinkler Installer New 4d Sprinkler Installer New 4d Temp 102.4 F H 06/21/21 21:13 Sprinkler Installer New 4d Pulse 98 06/21/21 20:00 Sprinkler Installer New 4d Resp 15 06/21/21 20:00 BP 126/49 L 06/21/21 20:00 Pulse Ox 96 06/21/21 20:00 BMI result Body Mass Index 28.0 Appearance: Alert. Oriented X3. No acute distress. Eyes: No pallor or icterus ENT: Pharynx normal. Oral Mucosa moist Neck: Normal inspection. Neck supple. CVS: Normal heart rate and rhythm. Pulses normal. Respiratory: No respiratory distress. Equal air entry bilateral, no wheezing/rales/rhonchi Abdomen: Soft and nontender. Bowel sounds are present, no mass palpable, Skin: Skin warm and dry. Normal skin color. Normal skin turgor. Extremities: Bilateral leg edema right leg more than left with warmth and redness of the right leg no calf tenderness Neuro: Oriented X 3. No motor deficit. MDM - Weakness MDM Narrative Medical decision making narrative: Patient with bilateral leg swelling right more than the left with local erythema and warmth suggestive of cellulitis. Lab workup is stable will admit patient for cellulitis and weakness patient has elevated D-dimer although calf is not very tender will start patient on prophylactic Lovenox pending Doppler in the morning Patient rectal temperature was 102.4 degrees, lactic acid 1.4 WBC count 9.9 patient received IV antibiotics and fluids patient's son was informed about patient's diagnosis and plan for admission Lab Data Attestation: I reviewed the patient's lab results. Result diagrams: 06/21/21 17:53 06/21/21 17:54 Labs: Lab Results 06/21/21 06/21/21 06/21/21 Range/Units 17:48 17:53 17:53 WBC 9.9 (4.8-10.8) X10*3/uL RBC 3.61 L (4.20-5.50) X10*6/uL Hgb 10.3 L (12.0-16.0) g/dl Hct 32.5 L (37.0-47.0) % MCV 90.0 (80.0-98.0) fL MCH 28.5 (27.0-33.0) pg MCHC 31.7 (31.0-35.0) g/dl RDW 14.8 (11.0-16.0) % Plt Count 251 (160-400) X10*3/uL MPV 9.1 L (9.4-12.3) fL Immature Gran % (Auto) 0.4 (0.0-0.4) % Neut % (Auto) 87.5 H (45-73) % Lymph % (Auto) 4.7 L (20-40) % [place] % (Auto) 6.5 (2-11) % Eos % (Auto) 0.7 (0-4) % Baso % (Auto) 0.2 (0-2) % Lymph # (Auto) 0.5 L (1.2-4.9) X10*3/uL [place] # (Auto) 0.6 (0.1-1.2) X10*3/uL Eos # (Auto) 0.1 (0.0-0.4) X10*3/uL Baso # (Auto) 0.0 (0.0-0.2) X10*3/uL Abs Immat Gran (auto) 0.04 H (0.00-0.03) X10*3/uL Absolute Neuts (auto) 8.6 H (2.0-8.3) x10*3/uL Absolute Nucleated RBC 0.000 (0.0-0.012) X10*3/uL Nucleated RBC % (auto) 0.0 (0.0-0.2) /100WBC PT (9.9-13.0) SEC INR (0.9-1.1) APTT (24.1-38.0) SEC D-Dimer High Sensitivty NG/ML Sodium (135-145) mmol/L Potassium (3.3-5.1) mmol/L Chloride (96-108) mmol/L Carbon Dioxide (22-29) mmol/L Anion Gap (12-20) BUN (9-16) mg/dL Creatinine (0.5-1.4) mg/dL Estim Creat Clear Calc Estimated GFR Random Glucose (60-115) mg/dL Lactic Acid (0.5-2.0) mmol/L Calcium (8.4-10.2) mg/dL Total Bilirubin (0.0-1.0) mg/dL AST (5-31) U/L ALT (0-31) U/L Alkaline Phosphatase (39-117) U/L Total Creatine Kinase (26-140) U/L B-Natriuretic Peptide 92 (<100) pg/mL Total Protein (6.5-8.0) g/dL Albumin (3.5-5.0) g/dL Urine Color Urine Appearance Urine pH (5.0-8.0) Ur Specific [place] (1.005-1.025) Urine Protein (NEG-TRACE) MG/DL Urine Glucose (UA) (NEG) MG/DL Urine Ketones (NEG) MG/DL Urine Blood (NEG) Urine Nitrite (NEG) Ur Leukocyte Esterase (NEG) COVID-19 (ELIANE) Negative (Negative) COVID-19 Clin Com See Note 06/21/21 06/21/21 06/21/21 Range/Units 17:54 17:54 17:54 WBC (4.8-10.8) X10*3/uL RBC (4.20-5.50) X10*6/uL Hgb (12.0-16.0) g/dl Hct (37.0-47.0) % MCV (80.0-98.0) fL MCH (27.0-33.0) pg MCHC (31.0-35.0) g/dl RDW (11.0-16.0) % Plt Count (160-400) X10*3/uL MPV (9.4-12.3) fL Immature Gran % (Auto) (0.0-0.4) % Neut % (Auto) (45-73) % Lymph % (Auto) (20-40) % [place] % (Auto) (2-11) % Eos % (Auto) (0-4) % Baso % (Auto) (0-2) % Lymph # (Auto) (1.2-4.9) X10*3/uL [place] # (Auto) (0.1-1.2) X10*3/uL Eos # (Auto) (0.0-0.4) X10*3/uL Baso # (Auto) (0.0-0.2) X10*3/uL Abs Immat Gran (auto) (0.00-0.03) X10*3/uL Absolute Neuts (auto) (2.0-8.3) x10*3/uL Absolute Nucleated RBC (0.0-0.012) X10*3/uL Nucleated RBC % (auto) (0.0-0.2) /100WBC PT 13.1 H (9.9-13.0) SEC INR 1.2 H (0.9-1.1) APTT 28.2 (24.1-38.0) SEC D-Dimer High Sensitivty 781 NG/ML Sodium 141 (135-145) mmol/L Potassium 3.7 (3.3-5.1) mmol/L Chloride 99 (96-108) mmol/L Carbon Dioxide 29 (22-29) mmol/L Anion Gap 17 (12-20) BUN 26 H (9-16) mg/dL Creatinine 1.27 (0.5-1.4) mg/dL Estim Creat Clear Calc 37.3 Estimated GFR 40 Random Glucose 116 H (60-115) mg/dL Lactic Acid 1.4 (0.5-2.0) mmol/L Calcium 9.9 D (8.4-10.2) mg/dL Total Bilirubin 0.7 (0.0-1.0) mg/dL AST 22 (5-31) U/L ALT 11 (0-31) U/L Alkaline Phosphatase 99 D (39-117) U/L Total Creatine Kinase 60 (26-140) U/L B-Natriuretic Peptide (<100) pg/mL Total Protein 7.2 (6.5-8.0) g/dL Albumin 3.8 (3.5-5.0) g/dL Urine Color Urine Appearance Urine pH (5.0-8.0) Ur Specific [place] (1.005-1.025) Urine Protein (NEG-TRACE) MG/DL Urine Glucose (UA) (NEG) MG/DL Urine Ketones (NEG) MG/DL Urine Blood (NEG) Urine Nitrite (NEG) Ur Leukocyte Esterase (NEG) COVID-19 (ELIANE) (Negative) COVID-19 Clin Com 06/21/21 Range/Units 18:47 WBC (4.8-10.8) X10*3/uL RBC (4.20-5.50) X10*6/uL Hgb (12.0-16.0) g/dl Hct (37.0-47.0) % MCV (80.0-98.0) fL MCH (27.0-33.0) pg MCHC (31.0-35.0) g/dl RDW (11.0-16.0) % Plt Count (160-400) X10*3/uL MPV (9.4-12.3) fL Immature Gran % (Auto) (0.0-0.4) % Neut % (Auto) (45-73) % Lymph % (Auto) (20-40) % [place] % (Auto) (2-11) % Eos % (Auto) (0-4) % Baso % (Auto) (0-2) % Lymph # (Auto) (1.2-4.9) X10*3/uL [place] # (Auto) (0.1-1.2) X10*3/uL Eos # (Auto) (0.0-0.4) X10*3/uL Baso # (Auto) (0.0-0.2) X10*3/uL Abs Immat Gran (auto) (0.00-0.03) X10*3/uL Absolute Neuts (auto) (2.0-8.3) x10*3/uL Absolute Nucleated RBC (0.0-0.012) X10*3/uL Nucleated RBC % (auto) (0.0-0.2) /100WBC PT (9.9-13.0) SEC INR (0.9-1.1) APTT (24.1-38.0) SEC D-Dimer High Sensitivty NG/ML Sodium (135-145) mmol/L Potassium (3.3-5.1) mmol/L Chloride (96-108) mmol/L Carbon Dioxide (22-29) mmol/L Anion Gap (12-20) BUN (9-16) mg/dL Creatinine (0.5-1.4) mg/dL Estim Creat Clear Calc Estimated GFR Random Glucose (60-115) mg/dL Lactic Acid (0.5-2.0) mmol/L Calcium (8.4-10.2) mg/dL Total Bilirubin (0.0-1.0) mg/dL AST (5-31) U/L ALT (0-31) U/L Alkaline Phosphatase (39-117) U/L Total Creatine Kinase (26-140) U/L B-Natriuretic Peptide (<100) pg/mL Total Protein (6.5-8.0) g/dL Albumin (3.5-5.0) g/dL Urine Color YELLOW Urine Appearance CLEAR Urine pH 7.0 (5.0-8.0) Ur Specific [place] 1.010 (1.005-1.025) Urine Protein NEG (NEG-TRACE) MG/DL Urine Glucose (UA) NEG (NEG) MG/DL Urine Ketones NEG (NEG) MG/DL Urine Blood NEG (NEG) Urine Nitrite NEG (NEG) Ur Leukocyte Esterase NEG (NEG) COVID-19 (ELIANE) (Negative) COVID-19 Clin Com Discharge Plan Discharge Clinical Impression: Cellulitis of leg Patient Disposition: Admitted As Inpatient
--- NOTE | 2021-06-21 16:59 | PC.NURSE ---
pt alert and oriented to place, but not time, c/o weakness, +4 pitting edema, legs warm to touch, bruising noted on chest and left breast, history of falls, but pt denies recent fall. button sewer hand put on. no difficulty breathing or shortness of breath, pt reporting slight pain in legs. provider at bedside.
[2021-06-21 17:58] LABS: MANUAL DIFF FLAG NO
[2021-06-21 18:00] VITALS: BP 144/59; PULSE 104; RESP 18; TEMP 36.6; O2SAT 97
[2021-06-21 18:06] LABS: Basophils Percent Auto 0.2 % (0-2); Eosinophils Absolute Auto 0.1 X10*3/uL (0.0-0.4); Eosinophils Percent Auto 0.7 % (0-4); Hematocrit 32.5 % (37.0-47.0); Hemoglobin 10.3 g/dl (12.0-16.0); Imm Gran Abs Auto 0.04 X10*3/uL (0.00-0.03); Imm Gran Pct Auto 0.4 % (0.0-0.4); Lymphocytes Absolute Auto 0.5 X10*3/uL (1.2-4.9); Lymphocytes Percent Auto 4.7 % (20-40); Mean Corpuscular HGB Conc 31.7 g/dl (31.0-35.0); Mean Corpuscular Hemoglobin 28.5 pg (27.0-33.0); Mean Platelet Volume 9.1 fL (9.4-12.3); Monocytes Absolute Auto 0.6 X10*3/uL (0.1-1.2); Monocytes Percent Auto 6.5 % (2-11); Neutrophils Absolute Auto 8.6 x10*3/uL (2.0-8.3); Neutrophils Percent Auto 87.5 % (45-73); Platelet Count 251 X10*3/uL (160-400); Red Blood Count 3.61 X10*6/uL (4.20-5.50); Red Cell Distribution Width 14.8 % (11.0-16.0); White Blood Count 9.9 X10*3/uL (4.8-10.8)
[2021-06-21] MEDS: 0.9 % Sodium Chloride 1,000 ML 999 ML IV (18:11)
[2021-06-21 18:13] LABS: Lactic Acid 1.4 mmol/L (0.5-2.0)
[2021-06-21 18:14] LABS: D Dimer High Sensitivity 781 NG/ML
[2021-06-21 18:18] LABS: COVID-19 Test Negative (Negative)
[2021-06-21 18:19] LABS: Alanine Aminotransferase 11 U/L (0-31); Albumin Level 3.8 g/dL (3.5-5.0); Alkaline Phosphatase 99 U/L (39-117); Anion Gap 17 (12-20); Aspartate Amino Transferase 22 U/L (5-31); Bilirubin Total 0.7 mg/dL (0.0-1.0); Blood Urea Nitrogen 26 mg/dL (9-16); Calcium 9.9 mg/dL (8.4-10.2); Carbon Dioxide 29 mmol/L (22-29); Chloride 99 mmol/L (96-108); Creatinine Clr Calc Pharmacy 37.3; Estimated Glomerular Filt Rate 40; Glucose Random 116 mg/dL (60-115); Potassium 3.7 mmol/L (3.3-5.1); Sodium 141 mmol/L (135-145); Total Protein 7.2 g/dL (6.5-8.0)
[2021-06-21 18:47] LABS: INTERNATIONAL NORM RATIO 1.2 (0.9-1.1); Prothrombin Time 13.1 SEC (9.9-13.0)
[2021-06-21 18:47] LABS: B Type Natriuretic Peptide 92 pg/mL (<100)
[2021-06-21 18:49] LABS: Partial Thromboplastin Time 28.2 SEC (24.1-38.0)
[2021-06-21 18:52] LABS: Appearance Urine CLEAR; Color Urine YELLOW; Glucose Urine UA NEG (NEG); Leukocyte Esterase Urine NEG (NEG); Nitrite Urine NEG (NEG); Urine Blood NEG (NEG); Urine Ketones NEG (NEG); Urine Protein NEG (NEG-TRACE)
[2021-06-21] MEDS: Enoxaparin Sodium 80 MG/0.8 ML SYRINGE SUBCUT (19:45)
[2021-06-21 20:00] VITALS: BP 126/49; PULSE 98; RESP 15; TEMP 36.3; O2SAT 96
--- NOTE | 2021-06-21 21:09 | PHA.MEDREC ---
Pharmacy Consult ? Medication Reconciliation Pharmacy has completed the medication reconciliation.
[2021-06-21 21:13] VITALS: TEMP 39.1
--- NOTE | 2021-06-21 21:48 | P.HPHOSP_ITS ---
History of Present Illness Date of Service: 06/21/21 Chief Complaint: generalized weakness 86-year-old female with past medical history of hypertension, TAVR who presents to the hospital stating that her son wanted her to come to the hospital. When asked why he felt that way she said that she had difficulty getting out of chair. Patient is a vague historian, appears that she may have some dementia or is slightly confused. She has to think about every a answer for quite some time before able to remember how to answer further review of system. She denies any chest pain, no shortness of breath, no cough, no abdominal pain nausea or vomiting, no diarrhea constipation. When asked her about her legs she does report that the been swollen but she does not remember how long. She denies having any pain in her legs. She denies having any fever or chills. No headache or change in vision. On arrival to the ED patient found to have a temperature of 102.4?, heart rate of 104, blood pressure 144/59 Labs are significant for WBC count 9.9, hemoglobin of 10.3 hematocrit of 32.5, BUN of 26, creatinine of 1.27 which is around her baseline, UA negative, chest x-ray negative. Has an elevated D-dimer Patient found to have cellulitis of lower extremity, unable to get accurate PMHx as pt doesnt have accurate history and cant remeber everything Review of Systems Verdana 4l Review of Systems: Yes all other systems are reviewed and Verdana 4d are negative [facility] Medical History Aortic valve disease Arthritis Edema Hypertension Surgical History History of back surgery Social History Alcohol intake: never Patient Tobacco Use Status: Never used Tobacco Use of substances other than those prescribed or required for medical reasons: No Advance Directives: Yes Advance Directives on File: Yes Advance Directives Date on File: 05/20/21 Meds Allergies Allergy/AdvReac Type Severity Reaction Status Date / Time acetaminophen Allergy Unknown rapid Verified 05/18/21 22:42 [Tylenol-Codeine heartbeat ] codeine Allergy Unknown TACHYCARDIC Unverified 05/18/21 22:42 [CODEINE] imipramine Allergy Unknown RASH Unverified 05/18/21 22:42 [IMIPRAMINE] Sulfa Allergy Unknown rash Verified 05/18/21 22:42 (Sulfonamide Antibiotics) sulfamethoxazole Allergy Unknown RASH Unverified 05/18/21 22:42 [From BACTRIM] trimethoprim Allergy Unknown RASH Unverified 05/18/21 22:42 [From BACTRIM] meperidine [From AdvReac Unknown SPACED Unverified 05/18/21 22:42 DEMEROL] OUT ,TACHYCARDI C Home Medications Medication Instructions Recorded Confirmed Last Taken Type butalbital-acetam 1 tab PO Q6H PRN 05/18/21 06/21/21 Unknown History inophen-caffeine 50 mg-325 mg-40 mg tablet citalopram 10 mg 10 mg PO DAILY 05/18/21 06/21/21 Unknown History tablet furosemide 40 mg 40 mg PO DAILY 05/18/21 06/21/21 Unknown History tablet hydrocodone 7.5 1 tab PO TID PRN 05/18/21 06/21/21 Unknown History mg-acetaminophen 325 mg tablet lorazepam 0.5 mg 1 tab PO DAILY 05/18/21 06/21/21 Unknown History tablet PRN metoprolol 50 mg PO DAILY 05/18/21 06/21/21 Unknown History succinate 50 mg tablet,extended release 24 hr omeprazole 20 mg 20 mg PO DAILY 05/18/21 06/21/21 Unknown History capsule,delayed release oxybutynin 30 mg PO DAILY 05/18/21 06/21/21 Unknown History chloride 15 mg tablet,extended release 24 hr potassium 1 tab PO DAILY 05/18/21 06/21/21 Unknown History chloride 10 mEq tablet,extended release rosuvastatin 10 10 mg PO BEDTIME 05/18/21 06/21/21 Unknown History mg tablet magnesium oxide 1 tab PO DAILY 06/21/21 06/21/21 Unknown History 400 mg (241.3 mg magnesium) tablet Physical Exam Verdana 4l Vital Signs and Narrative: Verdana 4d Verdana 4d Vital Signs: Verdana 4d Verdana 4Bd Last Vital Signs Verdana 4d River Boat Captain New 4d River Boat Captain New 4d Temp 102.4 F H 06/21/21 21:13 River Boat Captain New 4d Pulse 98 06/21/21 20:00 River Boat Captain New 4d Resp 15 06/21/21 20:00 BP 126/49 L 06/21/21 20:00 Pulse Ox 96 06/21/21 20:00 BMI result Body Mass Index 28.0 Const: General: cooperative and no acute distress Eyes: General: appearance normal, both eyes and all related structures Pupils: Equal, round and reactive pupils present Resp: Effort & Inspection: normal respiratory effort Auscultation: clear to auscultation bilaterally Cardio: Rate: regular rate Rhythm: regular rhythm GI: Palpation (GI): Soft to palpation Auscultation: normal bowel sounds Skin: General skin exam: no rashes or lesions noted Neuro: Cranial nerves: Yes Equal, round and reactive pupils present Extrem: Other: significant erythema, tenderness and warmth of the right lower extremity.erythema reaches to the thompson left extremity mildly erythematous around ankl. edema bilaterally 3+ Results Labs CBC and Chem 7: 06/21/21 17:53 06/21/21 17:54 Labs: Laboratory Results - last 24 hr 06/21/21 06/21/21 06/21/21 17:48 17:53 17:53 MCV 90.0 MCH 28.5 MCHC 31.7 RDW 14.8 Plt Count 251 MPV 9.1 L Immature Gran % (Auto) 0.4 Neut % (Auto) 87.5 H Lymph % (Auto) 4.7 L [place] % (Auto) 6.5 Eos % (Auto) 0.7 Baso % (Auto) 0.2 Lymph # (Auto) 0.5 L [place] # (Auto) 0.6 Eos # (Auto) 0.1 Baso # (Auto) 0.0 Abs Immat Gran (auto) 0.04 H Absolute Neuts (auto) 8.6 H Absolute Nucleated RBC 0.000 Nucleated RBC % (auto) 0.0 PT INR APTT D-Dimer High Sensitivty Anion Gap Estim Creat Clear Calc Estimated GFR Random Glucose Lactic Acid Calcium Total Bilirubin AST ALT Alkaline Phosphatase Total Creatine Kinase B-Natriuretic Peptide 92 Total Protein Albumin Urine Color Urine Appearance Urine pH Ur Specific [place] Urine Protein Urine Glucose (UA) Urine Ketones Urine Blood Urine Nitrite Ur Leukocyte Esterase COVID-19 (ELIANE) Negative COVID-19 Clin Com See Note 06/21/21 06/21/21 06/21/21 17:54 17:54 17:54 MCV MCH MCHC RDW Plt Count MPV Immature Gran % (Auto) Neut % (Auto) Lymph % (Auto) [place] % (Auto) Eos % (Auto) Baso % (Auto) Lymph # (Auto) [place] # (Auto) Eos # (Auto) Baso # (Auto) Abs Immat Gran (auto) Absolute Neuts (auto) Absolute Nucleated RBC Nucleated RBC % (auto) PT 13.1 H INR 1.2 H APTT 28.2 D-Dimer High Sensitivty 781 Anion Gap 17 Estim Creat Clear Calc 37.3 Estimated GFR 40 Random Glucose 116 H Lactic Acid 1.4 Calcium 9.9 D Total Bilirubin 0.7 AST 22 ALT 11 Alkaline Phosphatase 99 D Total Creatine Kinase 60 B-Natriuretic Peptide Total Protein 7.2 Albumin 3.8 Urine Color Urine Appearance Urine pH Ur Specific [place] Urine Protein Urine Glucose (UA) Urine Ketones Urine Blood Urine Nitrite Ur Leukocyte Esterase COVID-19 (ELIANE) COVID-19 Clin Com 06/21/21 18:47 MCV MCH MCHC RDW Plt Count MPV Immature Gran % (Auto) Neut % (Auto) Lymph % (Auto) [place] % (Auto) Eos % (Auto) Baso % (Auto) Lymph # (Auto) [place] # (Auto) Eos # (Auto) Baso # (Auto) Abs Immat Gran (auto) Absolute Neuts (auto) Absolute Nucleated RBC Nucleated RBC % (auto) PT INR APTT D-Dimer High Sensitivty Anion Gap Estim Creat Clear Calc Estimated GFR Random Glucose Lactic Acid Calcium Total Bilirubin AST ALT Alkaline Phosphatase Total Creatine Kinase B-Natriuretic Peptide Total Protein Albumin Urine Color YELLOW Urine Appearance CLEAR Urine pH 7.0 Ur Specific [place] 1.010 Urine Protein NEG Urine Glucose (UA) NEG Urine Ketones NEG Urine Blood NEG Urine Nitrite NEG Ur Leukocyte Esterase NEG COVID-19 (ELIANE) COVID-19 Clin Com Assessment and Plan (1) Cellulitis of leg: Status: Acute (2) D-dimer, elevated: Status: Acute (3) Febrile: Status: Acute (4) Lower extremity edema: Status: Acute Plan 86-year-old female with past medical history of TAVR, hypertension who presents to the hospital with complaints of weakness # lower extremity edema with elevated D-Dimer - cellulitis versus DVT - were unable to obtain stat venous Dopplers due to unavailability of tech - tx with therapeutic lovenox in ED - pending venous dupplex - will tx with abx for cellulitis # Right leg cellulitis - erythema, warmth, tenderness and edema - will tx with abx - follow cultures # Febrile - likely due to cellulitis - cxr -ve, ua -ve, covid -ve - no leukocytosis - Tylenol as needed # HTN - stable - continue home meds I was unable to get complete Pmhx of pt as she has recall issue but i will resume her home meds DVT ppx: lovenox Quality Stroke Does the patient have a stroke diagnosis?: No VTE Prior VTE?: No VTE Risk Level:: Medical - moderate - high VTE Device Contraindication: Treatment Not Indicated VTE Drug Contraindication: N/A - Med Ordered
[2021-06-21] MEDS: ceFAZolin Sodium/Dextrose,Iso 2 GM/50 ML PIGGYBACK IV (22:45)
[2021-06-21] MEDS: LORazepam 0.5 MG TABLET PO (23:29)
[2021-06-21] MEDS: HYDROcodone Bit/Acetam 7.5/325 TABLET 1 TAB PO (23:29)
[2021-06-21] MEDS: Lactated Ringers 1,000 ML 80 ML IVCONT (23:51)
--- NOTE | 2021-06-22 01:00 | PC.NURSE ---
pt resting comfortable. no chg in pt's condition. will continue to monitor.
[2021-06-22 02:00] VITALS: BP 124/57; PULSE 74; RESP 16; TEMP 37.2; O2SAT 96
--- NOTE | 2021-06-22 04:35 | PC.NURSE ---
pt cleaned up, remains on monitor, pt denies complaints, will continue to monitor pt.
[2021-06-22 06:00] VITALS: BP 126/54; PULSE 79; RESP 16
[2021-06-22] MEDS: ceFAZolin Sodium/Dextrose,Iso 2 GM/50 ML PIGGYBACK IV ×3 (06:00→21:16)
[2021-06-22 06:20] LABS: MANUAL DIFF FLAG NO
[2021-06-22 06:28] LABS: Basophils Percent Auto 0.3 % (0-2); Eosinophils Absolute Auto 0.2 X10*3/uL (0.0-0.4); Eosinophils Percent Auto 2.5 % (0-4); Hematocrit 27.3 % (37.0-47.0); Hemoglobin 8.7 g/dl (12.0-16.0); Imm Gran Abs Auto 0.04 X10*3/uL (0.00-0.03); Imm Gran Pct Auto 0.5 % (0.0-0.4); Lymphocytes Absolute Auto 0.9 X10*3/uL (1.2-4.9); Lymphocytes Percent Auto 11.3 % (20-40); Mean Corpuscular HGB Conc 31.9 g/dl (31.0-35.0); Mean Corpuscular Hemoglobin 28.8 pg (27.0-33.0); Mean Corpuscular Volume 90.4 fL (80.0-98.0); Mean Platelet Volume 9.3 fL (9.4-12.3); Monocytes Absolute Auto 0.9 X10*3/uL (0.1-1.2); Monocytes Percent Auto 11.2 % (2-11); Neutrophils Absolute Auto 5.7 x10*3/uL (2.0-8.3); Neutrophils Percent Auto 74.2 % (45-73); Platelet Count 211 X10*3/uL (160-400); Red Blood Count 3.02 X10*6/uL (4.20-5.50); White Blood Count 7.6 X10*3/uL (4.8-10.8)
[2021-06-22] MEDS: Omeprazole 20 MG CAPSULE.DR PO (06:52)
[2021-06-22 07:21] LABS: Anion Gap 13 (12-20); Blood Urea Nitrogen 25 mg/dL (9-16); Calcium 8.7 mg/dL (8.4-10.2); Carbon Dioxide 28 mmol/L (22-29); Chloride 101 mmol/L (96-108); Creatinine Clr Calc Pharmacy 44.7; Estimated Glomerular Filt Rate 49; Glucose Random 95 mg/dL (60-115); Potassium 2.9 mmol/L (3.3-5.1); Sodium 140 mmol/L (135-145)
--- NOTE | 2021-06-22 07:55 | PC.NURSE ---
Pt up for breakfast, ate well. Denies pain or discomfort. BLE swelling improved since yesterday. Pt having bedside ultrasound to leg at this time. Aware of plan for admission. Awaits bed assgn. Alert/oriented x 3.
[2021-06-22] MEDS: Escitalopram Oxalate 5 MG TABLET PO (08:48)
[2021-06-22] MEDS: Metoprolol Succinate ER 50 MG TAB.ER.24H PO (08:49)
[2021-06-22] MEDS: Furosemide 40 MG TABLET PO (08:49)
[2021-06-22] MEDS: Magnesium Oxide 400 MG TABLET PO (08:49)
[2021-06-22] MEDS: Docusate Sodium 100 MG CAPSULE PO ×2 (08:49→21:16)
--- NOTE | 2021-06-22 08:51 | PC.NURSE ---
Pt given AM meds, tolerated well. Up to bedside commode with minimal assist per missile technician, pt had a formed stool. Remains alert/oriented.
[2021-06-22] MEDS: 0.9 % Sodium Chloride Flush 3 ML SYRINGE IVFLUSH (08:53)
[2021-06-22] MEDS: HYDROcodone Bit/Acetam 7.5/325 TABLET 1 TAB PO ×2 (11:08→18:30)
--- NOTE | 2021-06-22 14:43 | P.PNIM_ITS ---
Subjective Subjective Date of Service: 06/22/21 Interval History: No acute issues overnight Review of Systems Denies CP Denies SOB Denies N/V/D Physical Exam Verdana 4l Vital Signs: Verdana 4d Verdana 4d Vital Signs: Verdana 4d Verdana 4Bd Last Vital Signs Verdana 4d Dowel Pin Man New 4d Dowel Pin Man New 4d Temp 99 F 06/22/21 02:00 Dowel Pin Man New 4d Pulse 79 06/22/21 06:00 Dowel Pin Man New 4d Resp 16 06/22/21 06:00 BP 126/54 L 06/22/21 06:00 Pulse Ox 96 06/22/21 02:00 BMI result Body Mass Index 28.0 Const: Other: No acute issues Resp: Other: Clear AP no R/R/W Cardio: Other: -S4 +S1/S2 -S3 M/R/G GI: Other: soft NABS x 44 quads Extrem: Other: bilat edema R>L..erythema/warmth RLE Objective Data Active Medications Acetaminophen (Acetaminophen 325 Mg Tablet) 650 mg PO Q6H PRN PRN Reason: Pain, Mild (Pain Scale 1-3) Acetaminophen/Butalbital/Caffeine (Butalb/Acetamin/Caff 50/325/40 Tablet) 1 tab PO Q6H PRN PRN Reason: Headache Hydrocodone Bitart/Acetaminophen (Hydrocodone Bit/Acetam 7.5/325 Tablet) 1 tab PO TID PRN PRN Reason: Pain (Scale Score 4-6) Last Admin: 06/22/21 11:08 Dose: 1 tab Documented by: JOAQUINA Atorvastatin Calcium (Atorvastatin Calcium 40 Mg Tablet) 40 mg PO BEDTIME [facility] Docusate Sodium (Docusate Sodium 100 Mg Capsule) 100 mg PO BID [facility] Last Admin: 06/22/21 08:49 Dose: 100 mg Documented by: JOAQUINA Escitalopram Oxalate (Escitalopram Oxalate 5 Mg Tablet) 5 mg PO DAILY [facility] Last Admin: 06/22/21 08:48 Dose: 5 mg Documented by: JOAQUINA Furosemide (Furosemide 40 Mg Tablet) 40 mg PO DAILY [facility]; Protocol Last Admin: 06/22/21 08:49 Dose: 40 mg Documented by: JOAQUINA Cefazolin Sodium/Dextrose (Ancef) 2 gm in 50 mls @ 100 mls/hr IV Q8H [facility] Last Infusion: 06/22/21 07:15 Dose: 0 mls/hr Documented by: JOAQUINA Lorazepam (Lorazepam 0.5 Mg Tablet) 0.5 mg PO DAILY PRN PRN Reason: Anxiety Last Admin: 06/21/21 23:29 Dose: 0.5 mg Documented by: LETHA Magnesium Oxide (Magnesium Oxide 400 Mg Tablet) 400 mg PO DAILY [facility] Last Admin: 06/22/21 08:49 Dose: 400 mg Documented by: JOAQUINA Meclizine HCl (Meclizine Hcl 25 Mg Tablet) 25 mg PO TID PRN PRN Reason: dizziness Metoprolol Succinate (Metoprolol Succinate Er 50 Mg Tab.Er.24h) 50 mg PO DAILY [facility]; Protocol Last Admin: 06/22/21 08:49 Dose: 50 mg Documented by: JOAQUINA Omeprazole (Omeprazole 20 Mg Capsule.Dr) 20 mg PO DAILY@0630 [facility] Last Admin: 06/22/21 06:52 Dose: 20 mg Documented by: LETHA Ondansetron HCl (Ondansetron Hcl 4 Mg/2 Ml Vial) 4 mg IVPUSH Q8H PRN PRN Reason: Nausea and Vomiting Oxybutynin Chloride (Oxybutynin Chloride Er 5 Mg Tab.Er.24) 30 mg PO DAILY [facility] Last Admin: 06/22/21 08:48 Dose: 30 mg Documented by: JOAQUINA Potassium Chloride (Potassium Chloride Er 10 Meq Capsule.Er) 10 meq PO DAILY [facility] Last Admin: 06/22/21 08:49 Dose: 10 meq Documented by: JOAQUINA Sodium Chloride (0.9 % Sodium Chloride Flush 3 Ml Syringe) 3 ml IVFLUSH QSHIFT [facility] Last Admin: 06/22/21 08:53 Dose: 3 ml Documented by: JOAQUINA Labs CBC & Chem 7: 06/22/21 06:04 06/22/21 06:04 Labs: Laboratory Results - last 24 hr 06/21/21 06/21/21 06/21/21 17:48 17:53 17:53 MCV 90.0 MCH 28.5 MCHC 31.7 RDW 14.8 Plt Count 251 MPV 9.1 L Immature Gran % (Auto) 0.4 Neut % (Auto) 87.5 H Lymph % (Auto) 4.7 L [place] % (Auto) 6.5 Eos % (Auto) 0.7 Baso % (Auto) 0.2 Lymph # (Auto) 0.5 L [place] # (Auto) 0.6 Eos # (Auto) 0.1 Baso # (Auto) 0.0 Abs Immat Gran (auto) 0.04 H Absolute Neuts (auto) 8.6 H Absolute Nucleated RBC 0.000 Nucleated RBC % (auto) 0.0 PT INR APTT D-Dimer High Sensitivty Anion Gap Estim Creat Clear Calc Estimated GFR Random Glucose Lactic Acid Calcium Total Bilirubin AST ALT Alkaline Phosphatase Total Creatine Kinase B-Natriuretic Peptide 92 Total Protein Albumin Urine Color Urine Appearance Urine pH Ur Specific [place] Urine Protein Urine Glucose (UA) Urine Ketones Urine Blood Urine Nitrite Ur Leukocyte Esterase COVID-19 (ELIANE) Negative COVID-ScreenHits See Note 06/21/21 06/21/21 06/21/21 17:54 17:54 17:54 MCV MCH MCHC RDW Plt Count MPV Immature Gran % (Auto) Neut % (Auto) Lymph % (Auto) [place] % (Auto) Eos % (Auto) Baso % (Auto) Lymph # (Auto) [place] # (Auto) Eos # (Auto) Baso # (Auto) Abs Immat Gran (auto) Absolute Neuts (auto) Absolute Nucleated RBC Nucleated RBC % (auto) PT 13.1 H INR 1.2 H APTT 28.2 D-Dimer High Sensitivty 781 Anion Gap 17 Estim Creat Clear Calc 37.3 Estimated GFR 40 Random Glucose 116 H Lactic Acid 1.4 Calcium 9.9 D Total Bilirubin 0.7 AST 22 ALT 11 Alkaline Phosphatase 99 D Total Creatine Kinase 60 B-Natriuretic Peptide Total Protein 7.2 Albumin 3.8 Urine Color Urine Appearance Urine pH Ur Specific [place] Urine Protein Urine Glucose (UA) Urine Ketones Urine Blood Urine Nitrite Ur Leukocyte Esterase COVID-19 (ELIANE) COVID-ScreenHits 06/21/21 06/22/21 06/22/21 18:47 06:04 06:04 MCV 90.4 MCH 28.8 MCHC 31.9 RDW 15.0 Plt Count 211 MPV 9.3 L Immature Gran % (Auto) 0.5 H Neut % (Auto) 74.2 H Lymph % (Auto) 11.3 L [place] % (Auto) 11.2 H Eos % (Auto) 2.5 Baso % (Auto) 0.3 Lymph # (Auto) 0.9 L [place] # (Auto) 0.9 Eos # (Auto) 0.2 Baso # (Auto) 0.0 Abs Immat Gran (auto) 0.04 H Absolute Neuts (auto) 5.7 Absolute Nucleated RBC 0.000 Nucleated RBC % (auto) 0.0 PT INR APTT D-Dimer High Sensitivty Anion Gap 13 Estim Creat Clear Calc 44.7 Estimated GFR 49 Random Glucose 95 Lactic Acid Calcium 8.7 D Total Bilirubin AST ALT Alkaline Phosphatase Total Creatine Kinase B-Natriuretic Peptide Total Protein Albumin Urine Color YELLOW Urine Appearance CLEAR Urine pH 7.0 Ur Specific [place] 1.010 Urine Protein NEG Urine Glucose (UA) NEG Urine Ketones NEG Urine Blood NEG Urine Nitrite NEG Ur Leukocyte Esterase NEG COVID-19 (ELIANE) COVID-19 Clin Com Assessment and Plan (1) Cellulitis of right lower extremity: Status: Acute Plan 86-year-old female with past medical history of TAVR, hypertension who presents to the hospital with complaints of weakness and bilat leg edema found to have cellulitis of RLE 1.RLE cellulitis -venous duplex negative bilaterally -Continue Ancef and follow clinically. - prophylactic Lovenox 2. HTN - acceptable control on current therapies - adjust as indicated DVT ppx: lovenox Quality Stroke Does the patient have a stroke diagnosis?: No VTE Prior VTE?: No VTE Risk Level:: Medical - moderate - high VTE Device Contraindication: Treatment Not Indicated VTE Drug Contraindication: N/A - Med Ordered
--- NOTE | 2021-06-22 15:59 | MHC.CM.PN ---
Met with pt to discuss d/c planning; pt states she is tired from being disrupted all night and day . Pt suggests I contact her dtr, Danii or son, Ja. Call placed to Ja who states pt just got out of [facility] about 10 days ago. She has VNA services with [facility] and family assistance. Pt continues to drive despite being told (per son) that she should not. She has a walker and a lift recliner. states pt is becoming more confused, vague and unsafe to live alone. He states pt goes through periods of confusion but then is sharp as a tack PT to eval pt on 06/23. referred to [facility], [facility] (pt has been to [facility] in past) and back to [facility] for VNA. Pt has been vaxed x3 and has a verified HCP on file. IMM in chart. CM to follow
[2021-06-22 18:48] VITALS: BP 155/67; PULSE 77; RESP 18; TEMP 37.5; O2SAT 93
[2021-06-22] MEDS: Enoxaparin Sodium 40 MG/0.4 ML SYRINGE SUBCUT (21:15)
[2021-06-22] MEDS: Atorvastatin Calcium 40 MG TABLET PO (21:16)
[2021-06-22] MEDS: LORazepam 0.5 MG TABLET PO (21:16)
[2021-06-22 23:58] VITALS: BP 139/62; PULSE 71; RESP 18; TEMP 37.1; O2SAT 93
[2021-06-23] MEDS: 0.9 % Sodium Chloride Flush 3 ML SYRINGE IVFLUSH ×2 (00:12→07:48)
[2021-06-23] MEDS: HYDROcodone Bit/Acetam 7.5/325 TABLET 1 TAB PO ×3 (03:02→12:53)
[2021-06-23 03:06] VITALS: BP 173/79; PULSE 76
[2021-06-23] MEDS: Omeprazole 20 MG CAPSULE.DR PO (06:51)
[2021-06-23] MEDS: ceFAZolin Sodium/Dextrose,Iso 2 GM/50 ML PIGGYBACK IV (06:53)
[2021-06-23] MEDS: Magnesium Oxide 400 MG TABLET PO (07:48)
[2021-06-23] MEDS: Docusate Sodium 100 MG CAPSULE PO (07:48)
[2021-06-23] MEDS: Furosemide 40 MG TABLET PO (07:49)
[2021-06-23] MEDS: Metoprolol Succinate ER 50 MG TAB.ER.24H PO (07:49)
[2021-06-23] MEDS: Escitalopram Oxalate 5 MG TABLET PO (07:49)
[2021-06-23 08:00] VITALS: BP 139/66; PULSE 67; RESP 17; TEMP 36.5; O2SAT 97
[2021-06-23 09:13] LABS: MANUAL DIFF FLAG NO
[2021-06-23 09:19] LABS: Basophils Percent Auto 0.3 % (0-2); Eosinophils Absolute Auto 0.6 X10*3/uL (0.0-0.4); Hematocrit 30.3 % (37.0-47.0); Hemoglobin 9.5 g/dl (12.0-16.0); Imm Gran Abs Auto 0.02 X10*3/uL (0.00-0.03); Imm Gran Pct Auto 0.3 % (0.0-0.4); Lymphocytes Absolute Auto 0.9 X10*3/uL (1.2-4.9); Lymphocytes Percent Auto 11.4 % (20-40); Mean Corpuscular HGB Conc 31.4 g/dl (31.0-35.0); Mean Corpuscular Hemoglobin 28.5 pg (27.0-33.0); Mean Platelet Volume 9.1 fL (9.4-12.3); Monocytes Absolute Auto 0.9 X10*3/uL (0.1-1.2); Monocytes Percent Auto 11.6 % (2-11); Neutrophils Absolute Auto 5.4 x10*3/uL (2.0-8.3); Neutrophils Percent Auto 68.4 % (45-73); Platelet Count 226 X10*3/uL (160-400); Red Blood Count 3.33 X10*6/uL (4.20-5.50); Red Cell Distribution Width 14.8 % (11.0-16.0); White Blood Count 7.8 X10*3/uL (4.8-10.8)
[2021-06-23 09:20] VITALS: BP 139/66; PULSE 67; O2SAT 97
[2021-06-23 09:37] LABS: Alanine Aminotransferase 7 U/L (0-31); Albumin Level 3.1 g/dL (3.5-5.0); Alkaline Phosphatase 79 U/L (39-117); Anion Gap 13 (12-20); Aspartate Amino Transferase 21 U/L (5-31); Bilirubin Total 0.4 mg/dL (0.0-1.0); Blood Urea Nitrogen 21 mg/dL (9-16); Calcium 8.8 mg/dL (8.4-10.2); Carbon Dioxide 30 mmol/L (22-29); Chloride 101 mmol/L (96-108); Creatinine Clr Calc Pharmacy 42.3; Estimated Glomerular Filt Rate 46; Glucose Random 119 mg/dL (60-115); Potassium 3.5 mmol/L (3.3-5.1); Sodium 140 mmol/L (135-145)
--- NOTE | 2021-06-23 11:48 | P.DS_ITS ---
DS: Providers Provider Date of Service: 06/23/21 Date of admission: 06/21/21 21:43 Date of discharge: 06/23/21 Primary care physician: Unknown Physician DS: Diagnosis Discharge Diagnosis (1) Cellulitis of right lower extremity: Status: Acute DS: Summary Hospital Course Hospital Course: 86yoF presented to ER with complaints of weakness and fever. States this has been evolving over last several days. On arrival to the ED patient found to have a temperature of 102.4?, heart rate of 104, blood pressure 144/59 Labs are significant for WBC count 9.9, hemoglobin of 10.3 hematocrit of 32.5, BUN of 26, creatinine of 1.27 which is around her baseline, UA negative, chest x-ray negative. Has an elevated D-dimer Patient found to have cellulitis of lower extremity, US negative Hospital Course Admitted..IV ABTx with marked improvement. Screened by PT...deemed medically fit for home with services Time Spent with Patient Time attestation: Total time spent providing and/or coordinating discharge services: Discharge coordination time: Greater than 30 minutes Quality: Stroke Does the patient have a stroke diagnosis?: No Physical Exam Verdana 4l Vital Signs: Verdana 4d Verdana 4d Vital Signs: Verdana 4d Verdana 4Bd Last Vital Signs Verdana 4d Customer Support Manager New 4d Customer Support Manager New 4d Temp 97.7 F 06/23/21 08:00 Customer Support Manager New 4d Pulse 67 06/23/21 09:20 Customer Support Manager New 4d Resp 17 06/23/21 08:00 BP 139/66 06/23/21 09:20 Pulse Ox 97 06/23/21 09:20 BMI result Body Mass Index 28.0 Const: Other: No acute issues Resp: Other: Clear AP no R/R/W Cardio: Other: -S4 +S1/S2 -S3 M/R/G GI: Other: soft NABS x 44 quads Extrem: Other: bilat edema R>L..erythema/warmth RLE DS: Data Data Completed and Pending Labs on day of discharge: Laboratory Results - last 24 hr 06/23/21 06/23/21 09:01 09:01 WBC 7.8 RBC 3.33 L Hgb 9.5 L Hct 30.3 L MCV 91.0 MCH 28.5 MCHC 31.4 RDW 14.8 Plt Count 226 MPV 9.1 L Immature Gran % (Auto) 0.3 Neut % (Auto) 68.4 Lymph % (Auto) 11.4 L [place] % (Auto) 11.6 H Eos % (Auto) 8.0 H Baso % (Auto) 0.3 Lymph # (Auto) 0.9 L [place] # (Auto) 0.9 Eos # (Auto) 0.6 H Baso # (Auto) 0.0 Abs Immat Gran (auto) 0.02 Absolute Neuts (auto) 5.4 Absolute Nucleated RBC 0.000 Nucleated RBC % (auto) 0.0 Sodium 140 Potassium 3.5 D Chloride 101 Carbon Dioxide 30 H Anion Gap 13 BUN 21 H Creatinine 1.12 Estim Creat Clear Calc 42.3 Estimated GFR 46 Random Glucose 119 H Calcium 8.8 Total Bilirubin 0.4 AST 21 ALT 7 Alkaline Phosphatase 79 D Total Protein 6.0 L Albumin 3.1 L Preliminary micro results at discharge 06/21/21 18:35 Blood Culture - Preliminary Blood - Venous No growth after 24 hours. 06/21/21 17:54 Blood Culture - Preliminary Blood - Venous No growth after 24 hours. Discharge Plan Discharge Patient Disposition: Home Health Service Discharge Diagnosis: cellulitis RLE Referrals: Physician,Unknown J [Primary Care Provider] - 1 Week Discharge Medications: New doxycycline hyclate 100 mg capsule 100 mg PO BID Qty: 20 0RF Continued meclizine 25 mg tablet 25 mg PO TID PRN (Reason: dizziness) Qty: 14 0RF furosemide 40 mg tablet 40 mg PO DAILY 0RF oxybutynin chloride 15 mg tablet extended release 24 hr 30 mg PO DAILY 0RF metoprolol succinate 50 mg tablet extended release 24 hr 50 mg PO DAILY 0RF citalopram 10 mg tablet 10 mg PO DAILY 0RF potassium chloride 10 mEq tablet extended release 1 tab PO DAILY 0RF fodgxlflwf-akbrlbzkcwpma-wmoa 50-325-40 mg tablet 1 tab PO Q6H PRN (Reason: Headache) 0RF lorazepam 0.5 mg tablet 1 tab PO DAILY PRN (Reason: Anxiety) 0RF hydrocodone-acetaminophen 7.5-325 mg tablet 1 tab PO TID PRN (Reason: Pain (Scale Score 4-6)) 0RF omeprazole 20 mg capsule,delayed release(DR/EC) 20 mg PO DAILY 0RF rosuvastatin 10 mg tablet 10 mg PO BEDTIME 0RF magnesium oxide 400 mg (241.3 mg magnesium) tablet 1 tab PO DAILY 0RF Discharge Orders: Discharge Order (Routine); Ordered 06/23/21 Ordered By: Cooper Leahy Diet: advance to usual diet Activity on Discharge: As tolerated Stand Alone Forms: Patient Portal Discharge page Care Plan Goals: Complete Doxtctcline twice daily x 10 days. Health Concerns: Follow up with PCP 2 weeks Plan of Treatment: Continue all your home meds as before hospital Assessment: Improved
[2021-06-23 12:00] VITALS: BP 122/59; PULSE 77; RESP 18; TEMP 36.4; O2SAT 99
--- NOTE | 2021-06-23 12:22 | MHC.CM.PN ---
PATIENT IS REFUSING TO DC TO ANY SHORT TERMS SHE IS AWARE THAT DAUGHTER GRICEL HAS SPOKEN WITH THIS RECORDS MANAGEMENT DIRECTOR AND WANTS THE PATIENT TO NOT RETURN HOME GRICEL WAS REMINDED THAT PATIENT HAS THE RIGHT TO MAKE THIS DECISION. GRICEL STATES THAT SHE HAS NOT MADE ANY ATTEMPTS TO CHANGE THE PATIENT'S LIVING SITUATION PRIOR TO THIS ADMISSION. GRICEL FEELS [facility] [place] A DEMENTIA EVALUATION. IT WAS EXPLAINED THAT THE PATIENT CAN DO THIS OUTPATIENT WITH HER PCP. DAUGHTER IS RESISTANT TO PATIENT RETURNING HOME STILL GRICEL MADE AWARE THAT NO BACK UP PAYOR SOURCE IS LISTED FOR THE PATIENT, WHICH MEANS NO COVERAGE FOR LTC. PATIENT AWARE AND STATES I AM GOING HOME .
--- NOTE | 2021-06-23 12:47 | MHC.CM.PN ---
THIS SWIMMING POOL SALESPERSON SPOKE WITH PATIENT WHO STATES THAT SHE IS TALKING WITH [facility], AND IS WILLING TO ACCEPT AN INCREASE IN SERVICES IN THE HOME
--- NOTE | 2021-06-23 12:51 | PC.NURSE ---
Pt son called, I attempted to answer his questions, he hung up on me. Global Engineering Manager called up stairs 10 minutes later and said she had an angry family member on the phone, she transferred him up to me. He was extremely rude and demanding, I attempted to answer his questions. He was concerned that his mom could not go home. I tried to explain to him that the doctor saw her. He said he would not come get her, I told him she was going home by ambulance, he stated you do that we are not going to go check on her. He began to yell at me and talk over me, he asked me my name which I gave him. He asked for case management name I would not provide it to him.. I asked him if he would like to speak to her, he said that he spoke to case management all weekend and they were giving him a different picture. He said he would so I went to tell Minnie and give her a little synopsis of what he was saying. By the time Minnie picked up the phone he had hung up again. Dr. Leahy also aware of the conversation. Minnie attempted to call the son back he would not answer the phone.
--- NOTE | 2021-06-23 12:52 | MHC.CM.PN ---
MESSAGE LEFT FOR SON, MELLY @ [phone] TO CALL THIS AUTHORIZATION NURSE MELLY WAS SPEAKING WITH RN AT A LEVEL LOUD ENOUGH FOR THIS AUTHORIZATION NURSE TO HEAR. MELLY IS NOT HAPPY WITH PATIENT RETURNING HOME AND IS NOT WILLING TO COME AND GET HER. HE WAS TOLD THAT WE CAN SEND HER HOME IN AN AMBULANCE. ATTEMPT TO TRANSFER SON TO THIS AUTHORIZATION NURSE'S EXTENSION ([id number]) RESULTED IN LOSING THE CALL. CASE MANAGEMENT TO REATTEMPT AND FOLLOW UP WITH A NOTE
--- NOTE | 2021-06-23 13:14 | W.MHC.F2F ---
Service Date Service Date: 06/23/21 Encounter Date of encounter: 06/23/21 Encounter: Hospital Reasons for Services Signs and symptoms assessed: unsteady Reason for group home: medication management Reason for physical therapy: home safety and mobility, therapeutic exercises and gait/transfer training Homebound: Leaving the home is medically contraindicated at this time without the asist of a device and/or another person due th the listed conditions above and below. Reason homebound: unsteady gait / fall risk and leg weakness Certification: Based on the above findings, I certify that this patient is confined to the home and needs intermittent group home care, physical therapy and/or speech therapy, or continues to need occupational therapy. The patient is under my care, and I have initiated the establishment of the plan of care. The patient will be followed by a physician who will periodically review the plan of care.
--- NOTE | 2021-06-23 15:00 | MHC.CM.PN ---
Addendum entered by Minnie Singh 06/23/21 15:07: CALL FROM ESTEFANIA OF [facility] ([phone]) ESTEFANIA WILL FOLLOW UP IN THE COMMUNITY WITH PATIENT (SHE HAS MET WITH PATIENT ALREADY AND DOES NOT FEEL PATIENT LACKS CAPACITY) ESTEFANIA IS AWARE THAT PATIENT WILL LEAVE [facility] [place] AND RESUME HER COMFORT [facility] WITH AN INCREASE IN HOME HEALTH SERVICES. Original Note: LENGTHY DISCUSSION WITH SON/POA, MELLY ([phone]) MELLY AGREES THAT LTC APPLICATION PROCESS SHOULD BE STARTED IN THE EVENT THAT PATIENT DOES REQUIRE THIS SERVICE PER AGREEMENT, FAX SENT TO [facility] [place] FINANCIAL COUNSELORS TO ASSIST MELLY IS AWARE TO GATHER PATIENT'S BANK STATEMENTS, PENSIONS, AND ALL FINANCIAL ACCOUNTS PATIENT MAY HAVE, INCLUDING CAR REGISTRATION AND MORTGAGE.
[2021-06-23 16:00] VITALS: RESP 18
== END 2021-06-23 18:58 | disposition home health service (06) | DRG 603 ==
LOC: HO.ED 16:52 → HO.EDOVER 21:55 → HO.S3 06-22 17:07
PROVIDERS: Admitting Provider Internal Medicine; Emergency Provider Internal Medicine; Visit Provider Hospitalist
DX: L03.115 Cellulitis of right lower limb (principal); K21.9 Gastro-esophageal reflux disease without esophagitis; F32.A Depression, unspecified; Z95.2 Presence of prosthetic heart valve; I10 Essential (primary) hypertension; Z20.822 Contact with and (suspected) exposure to COVID-19; Z88.2 Allergy status to sulfonamides; Z88.5 Allergy status to narcotic agent; Z79.899 Other long term (current) drug therapy
CPT/HCPCS: 36415; 71045; 80048; 80053; 81003; 82550; 83605; 83880; 85025; 85379; 85610; 85730; 87040; 87635; 93970; 96361; 96365; 96372; 97162; 99285; J0690; J1650

== ENCOUNTER 2021-07-27 23:03 | Emergency (ER) | payer MEDICARE, OTHER, SELFPAY ==
--- NOTE | ~2021-07-27 | CT_ITS ---
EXAMINATION: CT ABDOMEN AND PELVIS WITHOUT CONTRAST CLINICAL INFORMATION: Right-sided pain, question etiology COMPARISON: None TECHNIQUE: Multidetector volumetric imaging was performed from the superior aspect of the liver through the pubic symphysis. Sagittal and coronal reformatted images were obtained on the technologist's workstation. This CT examination was performed using dose optimization techniques as appropriate, variously including the following: *Automated exposure control *Adjustment of mA and/or kV according to patient size (this includes techniques or standardized protocols for targeted exams where dose is matched to indication/reason for exam; i.e. extremities or head) *Use of iterative reconstruction technique DLP: 797 mGy-cm FINDINGS: LUNG BASES: Minimal dependent atelectasis. Status post TAVR. Coronary artery calcifications are present. LIVER, GALLBLADDER, AND BILIARY TREE: The liver is normal in size, shape, and attenuation. Mildly prominent intrahepatic and extrahepatic bile ducts, which may be physiologic in the setting of prior cholecystectomy. PANCREAS: Unremarkable. SPLEEN: Unremarkable. ADRENAL GLANDS: Unremarkable. KIDNEYS AND URETERS: No hydronephrosis or obstructing calculus. There is a left lower pole renal calculus measuring 3 mm. BLADDER: Unremarkable. GASTROINTESTINAL TRACT: No evidence of bowel obstruction or significant wall thickening. Moderate amount of stool is present. There is mild colonic diverticulosis. Appendix is not definitively visualized. No free fluid or free air is seen. ABDOMINAL WALL: No significant hernia is appreciated. LYMPH NODES: No lymphadenopathy is seen, though assessment is limited in the absence of intravenous contrast. VASCULAR: There is atherosclerotic calcification along the aorta and iliac arteries. PELVIC VISCERA: Patient is status post hysterectomy. OSSEOUS STRUCTURES: Degenerative changes are noted in the spine. Spinal fusion hardware is present at L3-L4. Degenerative changes are present in the hips. CT/CT abdomen pelvis wo con IMPRESSION: No acute findings identified in the abdomen/pelvis. Moderate volume of stool. Chronic appearing changes as noted above. Fleischner guidelines were followed.
[2021-07-27 23:14] VITALS: BP 154/62; PULSE 80; O2SAT 100
[2021-07-27 23:17] VITALS: BP 170/66; PULSE 77; RESP 16; TEMP 36.8; O2SAT 100; BMI 23.5
--- NOTE | 2021-07-27 23:18 | ED_ITS ---
HPI - Abdominal Pain General Chief Complaint: Back Pain/Injury Stated Complaint: Rt side back pain Time Seen by Provider: 07/27/21 23:17 Source: patient Mode of arrival: ambulatory Limitations: no limitations History of Present Illness HPI narrative: Patient with chronic low backpain been complaining of right lower abdominal pain radiating to the right lower back for last few days getting worse no urinary symptoms pain gets worse on movements no nausea no vomiting no diarrhea no history of kidney stone patient had multiple back surgeries status post cholecystectomy and appendectomy known leg numbness or weakness no bladder or bowel involvement Related Data Home Medications Medication Instructions Recorded Confirmed yruzvemyoy-qdfzyovacysqa-deidllpz 1 tab PO Q6H PRN 05/18/21 06/21/21 50 mg-325 mg-40 mg tablet citalopram 10 mg tablet 10 mg PO DAILY 05/18/21 06/21/21 furosemide 40 mg tablet 40 mg PO DAILY 05/18/21 06/21/21 hydrocodone 7.5 mg-acetaminophen 1 tab PO TID PRN 05/18/21 06/21/21 325 mg tablet lorazepam 0.5 mg tablet 1 tab PO DAILY PRN 05/18/21 06/21/21 metoprolol succinate 50 mg 50 mg PO DAILY 05/18/21 06/21/21 tablet,extended release 24 hr omeprazole 20 mg capsule,delayed 20 mg PO DAILY 05/18/21 06/21/21 release oxybutynin chloride 15 mg 30 mg PO DAILY 05/18/21 06/21/21 tablet,extended release 24 hr potassium chloride 10 mEq 1 tab PO DAILY 05/18/21 06/21/21 tablet,extended release rosuvastatin 10 mg tablet 10 mg PO BEDTIME 05/18/21 06/21/21 magnesium oxide 400 mg (241.3 mg 1 tab PO DAILY 06/21/21 06/21/21 magnesium) tablet Previous Rx's Medication Instructions Recorded meclizine 25 mg tablet 25 mg PO TID PRN #14 tab 05/18/21 doxycycline hyclate 100 mg capsule 100 mg PO BID #20 cap 06/23/21 Allergies Allergy/AdvReac Type Severity Reaction Status Date / Time acetaminophen Allergy Unknown rapid Verified 05/18/21 22:42 [Tylenol-Codeine] heartbeat codeine [CODEINE] Allergy Unknown TACHYCARDIC Unverified 05/18/21 22:42 imipramine [IMIPRAMINE] Allergy Unknown RASH Unverified 05/18/21 22:42 Sulfa (Sulfonamide Allergy Unknown rash Verified 05/18/21 22:42 Antibiotics) sulfamethoxazole Allergy Unknown RASH Unverified 05/18/21 22:42 [From BACTRIM] trimethoprim [From BACTRIM] Allergy Unknown RASH Unverified 05/18/21 22:42 meperidine [From DEMEROL] AdvReac Unknown SPACED Unverified 05/18/21 22:42 OUT ,TACHYCARDIC Review of Systems Review of Systems Yes all other systems are reviewed and are negative FOR[facility]LY [facility], [facility] Past Medical History Medical History Aortic valve disease Arthritis Cellulitis of leg D-dimer, elevated Edema Hypertension Surgical History History of back surgery Social History Social History Household Members: None Housing: House Do you presently have visiting nurse or other home services: Yes Alcohol intake: never Patient Tobacco Use Status: Never used Tobacco Advance Directives: Yes Advance Directives on File: Yes Advance Directives Date on File: 05/20/21 service: No Current occupational status: retired Physical Exam ED Vital Signs: Vital Signs - 24 hr 07/28/21 00:00 07/28/21 01:59 07/28/21 02:00 Temperature 98.5 F 98.5 F Pulse Rate 81 82 Respiratory Rate 16 16 16 Blood Pressure 153/63 H 140/55 H Pulse Oximetry 97 99 BMI result Body Mass Index 23.5 Appearance: Alert. Oriented X3. No acute distress. Eyes: No pallor/ icterus ENT: Pharynx normal. Oral Mucosa moist Neck: Normal inspection. Neck supple. CVS: Normal heart rate and rhythm. Pulses normal. Respiratory: No respiratory distress. Equal air entry bilateral, no wheezing/rales/rhonchi Abdomen: Soft , mild deep tenderness right lower quadrant, Bowel sounds are present, no mass palpable, no CVA tenderness Skin: Skin warm and dry. Normal skin color. Normal skin turgor. Extremities: No lower extremity edema. No calf tenderness Back: Diffuse tenderness L1 L2-L3 with paraspinal spasm Neuro: Oriented X 3. No motor deficit. No sensory deficit.No cerebellar signs , cranial nerves II-XII intact MDM - Abdominal Pain MDM Narrative Medical decision making narrative: Patient with chronic back problems came with right lower quadrant pain and back pain CT scan negative for acute pathology will discharge patient home patient had allergic reaction in the ER from unknown agent had hives responded to Decadron and Benadryl patient did not receive any medication prior to her having the hives Lab Data Attestation: I reviewed the patient's lab results. Result diagrams: 07/27/21 23:46 07/27/21 23:46 Labs: Lab Results 07/27/21 07/27/21 07/28/21 Range/Units 23:46 23:46 01:38 WBC 8.2 (4.8-10.8) X10*3/uL RBC 3.74 L (4.20-5.50) X10*6/uL Hgb 10.8 L (12.0-16.0) g/dl Hct 33.7 L (37.0-47.0) % MCV 90.1 (80.0-98.0) fL MCH 28.9 (27.0-33.0) pg MCHC 32.0 (31.0-35.0) g/dl RDW 15.1 (11.0-16.0) % Plt Count 238 (160-400) X10*3/uL MPV 9.6 (9.4-12.3) fL Immature Gran % (Auto) 0.4 (0.0-0.4) % Neut % (Auto) 64.6 (45-73) % Lymph % (Auto) 14.3 L (20-40) % [place] % (Auto) 14.5 H (2-11) % Eos % (Auto) 5.6 H (0-4) % Baso % (Auto) 0.6 (0-2) % Lymph # (Auto) 1.2 (1.2-4.9) X10*3/uL [place] # (Auto) 1.2 (0.1-1.2) X10*3/uL Eos # (Auto) 0.5 H (0.0-0.4) X10*3/uL Baso # (Auto) 0.1 (0.0-0.2) X10*3/uL Abs Immat Gran (auto) 0.03 (0.00-0.03) X10*3/uL Absolute Neuts (auto) 5.3 (2.0-8.3) x10*3/uL Absolute Nucleated RBC 0.000 (0.0-0.012) X10*3/uL Nucleated RBC % (auto) 0.0 (0.0-0.2) /100WBC Sodium 140 (135-145) mmol/L Potassium 3.6 (3.3-5.1) mmol/L Chloride 101 (96-108) mmol/L Carbon Dioxide 28 (22-29) mmol/L Anion Gap 15 (12-20) BUN 29 H (9-16) mg/dL Creatinine 1.29 (0.5-1.4) mg/dL Estim Creat Clear Calc 31.5 Estimated GFR 39 Random Glucose 115 (60-115) mg/dL Calcium 9.8 D (8.4-10.2) mg/dL Total Bilirubin 0.4 (0.0-1.0) mg/dL AST 23 (5-31) U/L ALT 11 (0-31) U/L Alkaline Phosphatase 116 D (39-117) U/L Total Protein 7.6 D (6.5-8.0) g/dL Albumin 4.1 D (3.5-5.0) g/dL Lipase 43 (8-78) U/L Urine Color YELLOW Urine Appearance CLEAR Urine pH 6.0 (5.0-8.0) Ur Specific [place] 1.020 (1.005-1.025) Urine Protein NEG (NEG-TRACE) MG/DL Urine Glucose (UA) NEG (NEG) MG/DL Urine Ketones NEG (NEG) MG/DL Urine Blood NEG (NEG) Urine Nitrite NEG (NEG) Ur Leukocyte Esterase NEG (NEG) Discharge Plan Discharge Clinical Impression: Strain of lumbar region Patient Disposition: Home, Self-Care Instructions: Back Pain (ED) Additional Instructions: Continue pain medication and muscle relaxants Follow-up with PCP Prescriptions: No Action meclizine 25 mg tablet 25 mg PO TID PRN (Reason: dizziness) Qty: 14 0RF furosemide 40 mg tablet 40 mg PO DAILY 0RF oxybutynin chloride 15 mg tablet extended release 24 hr 30 mg PO DAILY 0RF metoprolol succinate 50 mg tablet extended release 24 hr 50 mg PO DAILY 0RF citalopram 10 mg tablet 10 mg PO DAILY 0RF potassium chloride 10 mEq tablet extended release 1 tab PO DAILY 0RF extuvdccys-hwiogvxtaqcfa-bphy 50-325-40 mg tablet 1 tab PO Q6H PRN (Reason: Headache) 0RF lorazepam 0.5 mg tablet 1 tab PO DAILY PRN (Reason: Anxiety) 0RF hydrocodone-acetaminophen 7.5-325 mg tablet 1 tab PO TID PRN (Reason: Pain (Scale Score 4-6)) 0RF omeprazole 20 mg capsule,delayed release(DR/EC) 20 mg PO DAILY 0RF rosuvastatin 10 mg tablet 10 mg PO BEDTIME 0RF magnesium oxide 400 mg (241.3 mg magnesium) tablet 1 tab PO DAILY 0RF doxycycline hyclate 100 mg capsule 100 mg PO BID Qty: 20 0RF Discharge Date/Time: 07/28/21 01:55
[2021-07-27 23:25] VITALS: PULSE 79; RESP 16; O2SAT 100
[2021-07-27 23:50] LABS: Basophils Absolute Auto 0.1 X10*3/uL (0.0-0.2); Basophils Percent Auto 0.6 % (0-2); Eosinophils Absolute Auto 0.5 X10*3/uL (0.0-0.4); Eosinophils Percent Auto 5.6 % (0-4); Hematocrit 33.7 % (37.0-47.0); Hemoglobin 10.8 g/dl (12.0-16.0); Imm Gran Abs Auto 0.03 X10*3/uL (0.00-0.03); Imm Gran Pct Auto 0.4 % (0.0-0.4); Lymphocytes Absolute Auto 1.2 X10*3/uL (1.2-4.9); Lymphocytes Percent Auto 14.3 % (20-40); MANUAL DIFF FLAG NO; Mean Corpuscular Hemoglobin 28.9 pg (27.0-33.0); Mean Corpuscular Volume 90.1 fL (80.0-98.0); Mean Platelet Volume 9.6 fL (9.4-12.3); Monocytes Absolute Auto 1.2 X10*3/uL (0.1-1.2); Monocytes Percent Auto 14.5 % (2-11); Neutrophils Absolute Auto 5.3 x10*3/uL (2.0-8.3); Neutrophils Percent Auto 64.6 % (45-73); Platelet Count 238 X10*3/uL (160-400); Red Blood Count 3.74 X10*6/uL (4.20-5.50); Red Cell Distribution Width 15.1 % (11.0-16.0); White Blood Count 8.2 X10*3/uL (4.8-10.8)
[2021-07-27] MEDS: ondansetron HCL 4 MG/2 ML VIAL IVPUSH (23:51)
[2021-07-27] MEDS: Morphine Sulfate 4 MG/ML CARTRIDGE IVPUSH (23:53)
[2021-07-27] MEDS: 0.9 % Sodium Chloride 1,000 ML 999 ML IV (23:56)
[2021-07-28] VITALS: BP 153/63; PULSE 81; RESP 16; TEMP 36.9; O2SAT 97
[2021-07-28 00:05] LABS: Alanine Aminotransferase 11 U/L (0-31); Albumin Level 4.1 g/dL (3.5-5.0); Alkaline Phosphatase 116 U/L (39-117); Anion Gap 15 (12-20); Aspartate Amino Transferase 23 U/L (5-31); Bilirubin Total 0.4 mg/dL (0.0-1.0); Blood Urea Nitrogen 29 mg/dL (9-16); Calcium 9.8 mg/dL (8.4-10.2); Carbon Dioxide 28 mmol/L (22-29); Chloride 101 mmol/L (96-108); Creatinine Clr Calc Pharmacy 31.5; Estimated Glomerular Filt Rate 39; Glucose Random 115 mg/dL (60-115); Lipase 43 U/L (8-78); Potassium 3.6 mmol/L (3.3-5.1); Sodium 140 mmol/L (135-145); Total Protein 7.6 g/dL (6.5-8.0)
[2021-07-28 01:44] LABS: Appearance Urine CLEAR; Color Urine YELLOW; Glucose Urine UA NEG (NEG); Leukocyte Esterase Urine NEG (NEG); Nitrite Urine NEG (NEG); Urine Blood NEG (NEG); Urine Ketones NEG (NEG); Urine Protein NEG (NEG-TRACE)
[2021-07-28 01:59] VITALS: BP 140/55; PULSE 82; RESP 16; TEMP 36.9; O2SAT 99
[2021-07-28 02:00] VITALS: RESP 16
== END 2021-07-28 01:55 | disposition home or self-care (01) ==
PROVIDERS: Emergency Provider Internal Medicine; PCP Internal Medicine
DX: M54.50 Low back pain, unspecified (principal); R10.2 Pelvic and perineal pain; Z79.899 Other long term (current) drug therapy
CPT/HCPCS: 36415; 74176; 80053; 81003; 83690; 85025; 96374; 96376; 99284; J2270; J2405

== ENCOUNTER 2021-07-30 16:50 | Observation (INO) | payer MEDICARE, OTHER, SELFPAY ==
--- NOTE | ~2021-07-30 | XR_ITS ---
EXAMINATION: XR CHEST CLINICAL INFORMATION: Dyspnea with question of CHF COMPARISON: Single view chest 06/21/2021 and two-view chest 09/09/2016 TECHNIQUE: Frontal view of the chest was obtained. FINDINGS: Elevated right hemidiaphragm is unchanged. Heart size normal. There is minimal upper zone redistribution suggesting mildly elevated left ventricular end-diastolic pressure but there is no gross CHF or interstitial edema. No infiltrates, or lung masses are seen. A TAVR is seen along with clips in the gallbladder fossa and suture anchors in the left shoulder. XR/XR chest 1V IMPRESSION: Mild upper zone redistribution as described above. No gross CHF/pulmonary edema.
--- NOTE | ~2021-07-30 | US_ITS ---
EXAMINATION: US VENOUS ULTRASOUND WITH DOPPLER LOWER EXTREMITY, BILATERAL CLINICAL INFORMATION: Swelling COMPARISON: 06/22/2021 TECHNIQUE: Ultrasound of the deep veins is performed from the hip to the calf with compression sonography and color and pulse Doppler assessment. Spectral analysis with color-flow imaging is performed. FINDINGS: RIGHT: There is normal venous compression and respiratory variation and augmented flow. The visualized common femoral vein, superficial femoral vein, profunda femoral vein, popliteal vein, and the trifurcation region shows no evidence of deep venous thrombosis. There is no significant popliteal fossa cyst. Mildly prominent inguinal lymph node. Subcutaneous edema noted in the lower leg. LEFT: There is normal venous compression and respiratory variation and augmented flow. The visualized common femoral vein, superficial femoral vein, profunda femoral vein, popliteal vein, and the trifurcation region shows no evidence of deep venous thrombosis. There is no significant popliteal fossa cyst. Mildly prominent inguinal lymph node. Subcutaneous edema noted in the lower leg. If the patient's symptoms persist, followup ultrasound in 5 days 7 days might be of value to exclude proximal propagation from a non-visualized calf vein. US/US venous duplex LE BI IMPRESSION: No DVT demonstrated in the bilateral lower extremities.
[2021-07-30 17:05] VITALS: BP 133/64; PULSE 78; RESP 16; TEMP 37.7; O2SAT 98
--- NOTE | 2021-07-30 18:51 | ECG_ITS ---
Test Reason : weakness Blood Pressure : / mmHG Vent. Rate : 080 BPM Atrial Rate : 080 BPM P-R Int : 174 ms QRS Dur : 134 ms QT Int : 444 ms P-R-T Axes : 060 005 051 degrees QTc Int : 512 ms Normal sinus rhythm Left bundle branch block Abnormal ECG When compared with ECG of 18-MAY-2021 11:22, No significant change was found Referred By: Darrick Valdovinos Electronically Signed By:DOMI ORELLANA MD
--- NOTE | 2021-07-30 18:52 | ED_ITS ---
HPI - Weakness General Chief complaint: General Medical Stated complaint: Non Ambulatory Time Seen by Provider: 07/30/21 16:59 Source: patient Mode of arrival: EMS Limitations: no limitations History of Present Illness HPI Narrative: 86-year-old female who presents emergency department for evaluation of inability loss secondary to leg swelling. The patient states that yesterday and today she was having difficulty walking secondary to swelling of her legs. The patient states she does take Lasix and she is compliant with her medications. She states that she has been having lower back pain secondary to arthritis however this is improved. She states that she had blood work and a CT scan of her abdomen pelvis done by her PCP which was unremarkable. She states that today she can stand was unable to walk and she called her PCP, Dr. Sue and he advised her to go to the emergency department for evaluation The patient states that she does have chest pain occasionally. She states that today at 11:00 she did have substernal dull pain which lasted approximately 20 minutes. She denied any other associated symptoms. She states that over the past several days she has noted rhinorrhea and a slight sore throat. She denied fever, chills, cough, abdominal pain, dysuria, change in bowel movements (black stools or bloody stools). Related Data Home Medications Medication Instructions Recorded Confirmed [id number] 1 tab PO Q6H PRN 05/18/21 06/21/21 50 mg-325 mg-40 mg tablet citalopram 10 mg tablet 10 mg PO DAILY 05/18/21 06/21/21 furosemide 40 mg tablet 40 mg PO DAILY 05/18/21 06/21/21 hydrocodone 7.5 mg-acetaminophen 1 tab PO TID PRN 05/18/21 06/21/21 325 mg tablet lorazepam 0.5 mg tablet 1 tab PO DAILY PRN 05/18/21 06/21/21 metoprolol succinate 50 mg 50 mg PO DAILY 05/18/21 06/21/21 tablet,extended release 24 hr omeprazole 20 mg capsule,delayed 20 mg PO DAILY 05/18/21 06/21/21 release oxybutynin chloride 15 mg 30 mg PO DAILY 05/18/21 06/21/21 tablet,extended release 24 hr potassium chloride 10 mEq 1 tab PO DAILY 05/18/21 06/21/21 tablet,extended release rosuvastatin 10 mg tablet 10 mg PO BEDTIME 05/18/21 06/21/21 magnesium oxide 400 mg (241.3 mg 1 tab PO DAILY 06/21/21 06/21/21 magnesium) tablet Previous Rx's Medication Instructions Recorded meclizine 25 mg tablet 25 mg PO TID PRN #14 tab 05/18/21 doxycycline hyclate 100 mg capsule 100 mg PO BID #20 cap 06/23/21 Allergies Allergy/AdvReac Type Severity Reaction Status Date / Time acetaminophen Allergy Unknown rapid Verified 05/18/21 22:42 [Tylenol-Codeine] heartbeat codeine [CODEINE] Allergy Unknown TACHYCARDIC Unverified 05/18/21 22:42 imipramine [IMIPRAMINE] Allergy Unknown RASH Unverified 05/18/21 22:42 Sulfa (Sulfonamide Allergy Unknown rash Verified 05/18/21 22:42 Antibiotics) sulfamethoxazole Allergy Unknown RASH Unverified 05/18/21 22:42 [From BACTRIM] trimethoprim [From BACTRIM] Allergy Unknown RASH Unverified 05/18/21 22:42 meperidine [From DEMEROL] AdvReac Unknown SPACED Unverified 05/18/21 22:42 OUT ,TACHYCARDIC Review of Systems Review of Systems: Yes all other systems are reviewed and are negative [facility] Past Medical History [facility] Narrative: Past medical history: Reviewed below. Past surgical history: Patient had a TAVR for aortic stenosis in 2018, she has had multiple back surgeries. She has had knee surgeries. She has had bilateral carpal tunnel release. Social history: The patient denies tobacco, alcohol and drug use. Medical History Aortic valve disease Arthritis Cellulitis of leg D-dimer, elevated Edema Hypertension Surgical History History of back surgery Social History Social History Household Members: None Housing: House Do you presently have visiting nurse or other home services: Yes Alcohol intake: never Patient Tobacco Use Status: Never used Tobacco Advance Directives: Yes Advance Directives on File: Yes Advance Directives Date on File: 05/20/21 service: No Current occupational status: retired Physical Exam Vital Signs: Vital Signs: Last Vital Signs Temp 99.3 F 07/30/21 19:52 Pulse 77 07/30/21 19:52 Resp 14 07/30/21 19:52 BP 120/53 L 07/30/21 19:13 Pulse Ox 98 07/30/21 19:52 BMI result Body Mass Index 25.8 Const: General: cooperative and no acute distress Orientation/consci ousness: oriented to person and oriented to place Limitations: no limitations HENMT: Head: Yes normal to inspection, Yes normocephalic and Yes atraumatic Ears: external ears normal General nose exam: Normal external nose present Face and sinus: Yes normal facial exam Mouth: Normal oral and palatal mucosa present Throat: Yes posterior oropharynx normal Eyes: General: appearance normal, both eyes and all related structures Pupils: Equal, round and reactive pupils present Neck: Neck: Yes normal visual inspection, Yes no lymphadenopathy, Yes trachea midline and Yes supple Chest: Chest palpation & inspection: normal inspection of the chest and normal palpation of entire chest wall Resp: Effort & Inspection: normal respiratory effort and able to speak in complete sentences Auscultation: clear to auscultation bilaterally Cardio: Rate: regular rate Rhythm: regular rhythm Heart sounds: S1 n ormal heart sound present, S2 normal heart sound present and no murmurs GI: Inspection: Yes normal to inspection Palpation (GI): Soft to palpation, nontender and no guarding Auscultation: normal bowel sounds : General: Yes no CVA tenderness Back/Spine/Pelvis: Back: no CVA tenderness Skin: General skin exam: no rashes or lesions noted Neuro: Other: The patient has normal strength of her upper extremities. Patient is minimally able to lift her lower legs up against gravity secondary to her pitting edema. General: oriented to person and oriented to place Cranial nerves: Yes CN's II-XII intact bilaterally and Yes Equal, round and reactive pupils present Cognition (Neuro): normal cognition Extrem: Other: Bilateral symmetric, 2+ pitting edema to the lower extremities. Patient is able to minimally lift her legs up against gravity secondary to the weight from the pitting edema. Psych: Appearance: grossly normal Speech and movement: Normal speech and movement present Affect: normal affect Attitude: cooperative Thought process: Normal thought process present Thought content: Normal thought brenda nt present Course Course Course Narrative: 86-year-old female who presents emergency department for evaluation of difficulty walking x2 days. The patient states that she can stand was unable to walk secondary to weakness in her lower extremities. Patient's initial vital signs were normal physical examination did reveal significant lower extremity pitting edema and I believe that this is the cause of her inability to walk. I did order laboratory evaluation, EKG and chest x-ray. 2058: Laboratory evaluation: Anemia with an H&H of 9.7 and 29.9. Elevated CO2 30. Elevated BUN 19. Elevated glucose 116. BNP elevated 190. COVID-19 was negative. High sensitivity troponin I elevated 55.2. Chest x-ray was unremarkable. Twelve EKG is consistent with a left bundle-branch block. The patient was ordered to get furosemide 40 mg IV. I believe that the patient need to be admitted for further diuresis and will discuss the presentation with the covering hospitalist. 2139: I did discuss the patient's presentation with the covering hospitalist, Dr. Cortez and the patient will be admitted to the hospital service for further treatment. MDM - Weakness Lab Data Result diagrams: 07/30/21 19:31 07/30/21 19:31 Labs: Lab Results 07/30/21 07/30/21 07/30/21 Range/Units 19:31 19:31 19:31 WBC 7.4 (4.8-10.8) X10*3/uL RBC 3.32 L (4.20-5.50) X10*6/uL Hgb 9.7 L (12.0-16.0) g/dl Hct 29.9 L (37.0-47.0) % MCV 90.1 (80.0-98.0) fL MCH 29.2 (27.0-33.0) pg MCHC 32.4 (31.0-35.0) g/dl RDW 14.8 (11.0-16.0) % Plt Count 217 (160-400) X10*3/uL MPV 9.0 L (9.4-12.3) fL Immature Gran % (Auto) 0.4 (0.0-0.4) % Neut % (Auto) 65.2 (45-73) % Lymph % (Auto) 17.0 L (20-40) % Jones % (Auto) 14.3 H (2-11) % Eos % (Auto) 2.8 (0-4) % Baso % (Auto) 0.3 (0-2) % Lymph # (Auto) 1.3 (1.2-4.9) X10*3/uL Jones # (Auto) 1.1 (0.1-1.2) X10*3/uL Eos # (Auto) 0.2 (0.0-0.4) X10*3/uL Baso # (Auto) 0.0 (0.0-0.2) X10*3/uL Abs Immat Gran (auto) 0.03 (0.00-0.03) X10*3/uL Absolute Neuts (auto) 4.8 (2.0-8.3) x10*3/uL Absolute Nucleated RBC 0.000 (0.0-0.012) X10*3/uL Nucleated RBC % (auto) 0.0 (0.0-0.2) /100WBC Sodium 139 (135-145) mmol/L Potassium 3.3 (3.3-5.1) mmol/L Chloride 102 (96-108) mmol/L Carbon Dioxide 30 H (22-29) mmol/L Anion Gap 10 L (12-20) BUN 19 H (9-16) mg/dL Creatinine 1.08 (0.5-1.4) mg/dL Estim Creat Clear Calc TNP Estimated GFR 48 Random Glucose 116 H (60-115) mg/dL Calcium 8.8 D (8.4-10.2) mg/dL Total Bilirubin 0.4 (0.0-1.0) mg/dL AST 22 (5-31) U/L ALT 11 (0-31) U/L Alkaline Phosphatase 94 (39-117) U/L Troponin I High Sens 55.2 H* (<3.5-17.0) ng/L B-Natriuretic Peptide 190 H (<100) pg/mL Total Protein 6.1 L (6.5-8.0) g/dL Albumin 3.3 L (3.5-5.0) g/dL COVID-19 (ELIANE) (Negative) COVID-19 Clin Com 07/30/21 Range/Units 19:31 WBC (4.8-10.8) X10*3/uL RBC (4.20-5.50) X10*6/uL Hgb (12.0-16.0) g/dl Hct (37.0-47.0) % MCV (80.0-98.0) fL MCH (27.0-33.0) pg MCHC (31.0-35.0) g/dl RDW (11.0-16.0) % Plt Count (160-400) X10*3/uL MPV (9.4-12.3) fL Immature Gran % (Auto) (0.0-0.4) % Neut % (Auto) (45-73) % Lymph % (Auto) (20-40) % Jones % (Auto) (2-11) % Eos % (Auto) (0-4) % Baso % (Auto) (0-2) % Lymph # (Auto) (1.2-4.9) X10*3/uL Jones # (Auto) (0.1-1.2) X10*3/uL Eos # (Auto) (0.0-0.4) X10*3/uL Baso # (Auto) (0.0-0.2) X10*3/uL Abs Immat Gran (auto) (0.00-0.03) X10*3/uL Absolute Neuts (auto) (2.0-8.3) x10*3/uL Absolute Nucleated RBC (0.0-0.012) X10*3/uL Nucleated RBC % (auto) (0.0-0.2) /100WBC Sodium (135-145) mmol/L Potassium (3.3-5.1) mmol/L Chloride (96-108) mmol/L Carbon Dioxide (22-29) mmol/L Anion Gap (12-20) BUN (9-16) mg/dL Creatinine (0.5-1.4) mg/dL Estim Creat Clear Calc Estimated GFR Random Glucose (60-115) mg/dL Calcium (8.4-10.2) mg/dL Total Bilirubin (0.0-1.0) mg/dL AST (5-31) U/L ALT (0-31) U/L Alkaline Phosphatase (39-117) U/L Troponin I High Sens (<3.5-17.0) ng/L B-Natriuretic Peptide (<100) pg/mL Total Protein (6.5-8.0) g/dL Albumin (3.5-5.0) g/dL COVID-19 (ELIANE) Negative (Negative) COVID-19 Clin Com See Note Discharge Plan Discharge Prescriptions: No Action meclizine 25 mg tablet 25 mg PO TID PRN (Reason: dizziness) Qty: 14 0RF furosemide 40 mg tablet 40 mg PO DAILY 0RF oxybutynin chloride 15 mg tablet extended release 24 hr 30 mg PO DAILY 0RF metoprolol succinate 50 mg tablet extended release 24 hr 50 mg PO DAILY 0RF citalopram 10 mg tablet 10 mg PO DAILY 0RF potassium chloride 10 mEq tablet extended release 1 tab PO DAILY 0RF xjzzoxnprh-ptynfgltarpoe-xaqg 50-325-40 mg tablet 1 tab PO Q6H PRN (Reason: Headache) 0RF lorazepam 0.5 mg tablet 1 tab PO DAILY PRN (Reason: Anxiety) 0RF hydrocodone-acetaminophen 7.5-325 mg tablet 1 tab PO TID PRN (Reason: Pain (Scale Score 4-6)) 0RF omeprazole 20 mg capsule,delayed release(DR/EC) 20 mg PO DAILY 0RF rosuvastatin 10 mg tablet 10 mg PO BEDTIME 0RF magnesium oxide 400 mg (241.3 mg magnesium) tablet 1 tab PO DAILY 0RF doxycycline hyclate 100 mg capsule 100 mg PO BID Qty: 20 0RF
[2021-07-30 19:13] VITALS: BP 120/53; PULSE 80; RESP 15; TEMP 37.3; O2SAT 97
[2021-07-30 19:36] LABS: MANUAL DIFF FLAG NO
[2021-07-30 19:38] LABS: Basophils Percent Auto 0.3 % (0-2); Eosinophils Absolute Auto 0.2 X10*3/uL (0.0-0.4); Eosinophils Percent Auto 2.8 % (0-4); Hematocrit 29.9 % (37.0-47.0); Hemoglobin 9.7 g/dl (12.0-16.0); Imm Gran Abs Auto 0.03 X10*3/uL (0.00-0.03); Imm Gran Pct Auto 0.4 % (0.0-0.4); Lymphocytes Absolute Auto 1.3 X10*3/uL (1.2-4.9); Mean Corpuscular HGB Conc 32.4 g/dl (31.0-35.0); Mean Corpuscular Hemoglobin 29.2 pg (27.0-33.0); Mean Corpuscular Volume 90.1 fL (80.0-98.0); Monocytes Absolute Auto 1.1 X10*3/uL (0.1-1.2); Monocytes Percent Auto 14.3 % (2-11); Neutrophils Absolute Auto 4.8 x10*3/uL (2.0-8.3); Neutrophils Percent Auto 65.2 % (45-73); Platelet Count 217 X10*3/uL (160-400); Red Blood Count 3.32 X10*6/uL (4.20-5.50); Red Cell Distribution Width 14.8 % (11.0-16.0); White Blood Count 7.4 X10*3/uL (4.8-10.8)
[2021-07-30 19:52] VITALS: PULSE 77; RESP 14; TEMP 37.4; O2SAT 98; BMI 25.8
[2021-07-30 19:54] LABS: Alanine Aminotransferase 11 U/L (0-31); Albumin Level 3.3 g/dL (3.5-5.0); Alkaline Phosphatase 94 U/L (39-117); Anion Gap 10 (12-20); Aspartate Amino Transferase 22 U/L (5-31); Bilirubin Total 0.4 mg/dL (0.0-1.0); Blood Urea Nitrogen 19 mg/dL (9-16); Calcium 8.8 mg/dL (8.4-10.2); Carbon Dioxide 30 mmol/L (22-29); Chloride 102 mmol/L (96-108); Estimated Glomerular Filt Rate 48; Glucose Random 116 mg/dL (60-115); Potassium 3.3 mmol/L (3.3-5.1); Sodium 139 mmol/L (135-145); Total Protein 6.1 g/dL (6.5-8.0)
[2021-07-30 19:59] LABS: COVID-19 Test Negative (Negative); IDNOW Serial# 55D5AD1C
[2021-07-30 20:00] LABS: B Type Natriuretic Peptide 190 pg/mL (<100); Troponin-I High Sensitivity 55.2 ng/L (<3.5-17.0)
[2021-07-30] MEDS: Furosemide 100 MG/10 ML VIAL 60 MG IVPUSH (22:25)
--- NOTE | 2021-07-30 22:29 | P.HPHOSP_ITS ---
History of Present Illness Date of Service: 07/30/21 Chief Complaint: leg swelling this is an 86-year-old female with past medical history of aortic valve disease status post TAVR, arthritis, hypertension, chronic peripheral edema on Lasix presents to the hospital with difficulty walking due to increased swelling in her legs. Patient reports compliance with her Lasix, but reports that she has had difficulty with walking for the past 2-3 days due to significant increased in her lower extremities. Patient denies any shortness of breath, no orthopnea or PND, no chest pain, no palpitations, no abdominal pain nausea or vomiting, no diarrhea constipation, no urinary symptoms. No numbness tingling or weakness. On arrival to the ED patient hemodynamically stable with no significant abnormal vitals Labs are significant for WBC count of 9.7, hemoglobin of 10.6, hematocrit 33.6, troponin of 55.2, BNP of 190, UA negative, chest x-ray shows chest x-ray demonstrating minimal upper zone redistribution suggesting mildly elevated left ventricular end-diastolic pressure but no gross CHF or to social edema. Review of Systems Review of Systems: Yes all other systems are reviewed and are negative [facility] Medical History (Updated 07/31/21 @ 06:21 by Gurwinder Cortez MD) Aortic valve disease Arthritis Cellulitis of leg D-dimer, elevated Edema Hypertension Family History (Updated 07/31/21 @ 06:18 by Gurwinder Cortez MD) Other No family history of coronary artery disease Surgical History (Updated 07/31/21 @ 06:20 by Gurwinder Cortez MD) History of appendectomy History of back surgery History of cholecystectomy History of hysterectomy Social History Household Members: None Housing: House Do you presently have visiting nurse or other home services: Yes Alcohol intake: never Patient Tobacco Use Status: Never used Tobacco Advance Directives: Yes Advance Directives on File: Yes Advance Directives Date on File: 05/20/21 service: No Current occupational status: retired Meds Allergies Allergy/AdvReac Type Severity Reaction Status Date / Time acetaminophen Allergy Unknown rapid Verified 05/18/21 22:42 [Tylenol-Codeine] heartbeat codeine [CODEINE] Allergy Unknown TACHYCARDIC Unverified 05/18/21 22:42 imipramine [IMIPRAMINE] Allergy Unknown RASH Unverified 05/18/21 22:42 Sulfa (Sulfonamide Allergy Unknown rash Verified 05/18/21 22:42 Antibiotics) sulfamethoxazole Allergy Unknown RASH Unverified 05/18/21 22:42 [From BACTRIM] trimethoprim [From BACTRIM] Allergy Unknown RASH Unverified 05/18/21 22:42 meperidine [From DEMEROL] AdvReac Unknown SPACED Unverified 05/18/21 22:42 OUT ,TACHYCARDIC Home Medications Medication Instructions Recorded Confirmed Last Taken Type citalopram 10 mg tablet 10 mg PO DAILY 05/18/21 07/30/21 Unknown History furosemide 40 mg tablet 40 mg PO DAILY 05/18/21 07/30/21 Unknown History hydrocodone 7.5 mg-acetaminophen 1 tab PO TID PRN 05/18/21 07/30/21 Unknown History 325 mg tablet lorazepam 0.5 mg tablet 1 tab PO DAILY PRN 05/18/21 07/30/21 Unknown History metoprolol succinate 50 mg 50 mg PO DAILY 05/18/21 07/30/21 Unknown History tablet,extended release 24 hr omeprazole 20 mg capsule,delayed 20 mg PO DAILY 05/18/21 07/30/21 Unknown History release oxybutynin chloride 15 mg 15 mg PO BID 05/18/21 07/30/21 Unknown History tablet,extended release 24 hr potassium chloride 10 mEq 1 tab PO DAILY 05/18/21 07/30/21 Unknown History tablet,extended release rosuvastatin 10 mg tablet 10 mg PO BEDTIME 05/18/21 07/30/21 Unknown History Physical Exam Vital Signs and Narrative: Vital Signs: Last Vital Signs Temp 99.3 F 07/30/21 19:52 Pulse 77 07/30/21 19:52 Resp 14 07/30/21 19:52 BP 120/53 L 07/30/21 19:13 Pulse Ox 98 07/30/21 19:52 BMI result Body Mass Index 25.8 Const: General: cooperative and no acute distress Orientation/consciousness: patient oriented x3 Eyes: General: appearance normal, both eyes and all related structures Pupils: Equal, round and reactive pupils present Resp: Effort & Inspection: normal respiratory effort Auscultation: clear to auscultation bilaterally Cardio: Rate: regular rate Rhythm: regular rhythm GI: Palpation (GI): Soft to palpation Auscultation: normal bowel sounds Skin: General skin exam: no rashes or lesions noted Neuro: General: patient oriented x3 Cranial nerves: Yes Equal, round and reactive pupils present Cognition (Neuro): normal cognition Extrem: Other: 2+ edema in the lower extremities tenderness in the calf region no erythema or warmth General: Yes normal to inspection Results Labs CBC and Chem 7: 07/31/21 05:34 07/31/21 05:34 Labs: Laboratory Results - last 24 hr 07/30/21 07/30/21 07/30/21 19:31 19:31 19:31 MCV 90.1 MCH 29.2 MCHC 32.4 RDW 14.8 Plt Count 217 MPV 9.0 L Immature Gran % (Auto) 0.4 Neut % (Auto) 65.2 Lymph % (Auto) 17.0 L Jewell % (Auto) 14.3 H Eos % (Auto) 2.8 Baso % (Auto) 0.3 Lymph # (Auto) 1.3 Jewell # (Auto) 1.1 Eos # (Auto) 0.2 Baso # (Auto) 0.0 Abs Immat Gran (auto) 0.03 Absolute Neuts (auto) 4.8 Absolute Nucleated RBC 0.000 Nucleated RBC % (auto) 0.0 Anion Gap 10 L Estim Creat Clear Calc TNP Estimated GFR 48 Random Glucose 116 H Calcium 8.8 D Total Bilirubin 0.4 AST 22 ALT 11 Alkaline Phosphatase 94 B-Natriuretic Peptide 190 H Total Protein 6.1 L Albumin 3.3 L COVID-19 (ELIANE) COVID-19 Clin Com 07/30/21 19:31 MCV MCH MCHC RDW Plt Count MPV Immature Gran % (Auto) Neut % (Auto) Lymph % (Auto) Jewell % (Auto) Eos % (Auto) Baso % (Auto) Lymph # (Auto) Jewell # (Auto) Eos # (Auto) Baso # (Auto) Abs Immat Gran (auto) Absolute Neuts (auto) Absolute Nucleated RBC Nucleated RBC % (auto) Anion Gap Estim Creat Clear Calc Estimated GFR Random Glucose Calcium Total Bilirubin AST ALT Alkaline Phosphatase B-Natriuretic Peptide Total Protein Albumin COVID-19 (ELIANE) Negative COVID-19 Clin Com See Note Imaging Radiologist's Impressions: Impressions Chest X-Ray 07/30/21 18:57 IMPRESSION: Mild upper zone redistribution as described above. No gross CHF/pulmonary edema. Assessment and Plan (1) Lower extremity edema: Status: Acute (2) Elevated troponin: Status: Acute Plan this is an 86-year-old female with past medical history of chronic peripheral edema presents to the hospital with complaints of worsening lower extremity edema inability to walk as a result # lower extremity edema - chronic peripheral venous insufficiency versus CHF - has slightly elevated BNP, chest x-ray showing possible elevated left ventricular end-diastolic pressure - has significant difficulty walking as a result - takes Lasix p.o. at home with no improvement - will treat with IV Lasix - will obtain echocardiogram to to evaluate cardiac function - PT - venous duplex negative for DVT # elevated troponin - denies any chest pain - EKG shows normal sinus rhythm with no ST T-wave changes suggestive of ACS - will trend # chronic back pain - continue home medications # anxiety - continue lorazepam # hyperlipidemia - continue statin given her significant lower extremity swelling, concern for heart failure, failed outpatient po lasix, as well as difficulty walking will need admit for further evaluation Quality Stroke Does the patient have a stroke diagnosis?: No VTE Prior VTE?: No VTE Risk Level:: Medical - moderate - high VTE Device Contraindication: Treatment Not Indicated VTE Drug Contraindication: N/A - Med Ordered
[2021-07-30 23:12] VITALS: BP 142/66; PULSE 77; RESP 13; TEMP 37.3; O2SAT 96
[2021-07-30] MEDS: Enoxaparin Sodium 40 MG/0.4 ML SYRINGE SUBCUT (23:22)
[2021-07-30] MEDS: HYDROcodone Bit/Acetam 7.5/325 TABLET 1 TAB PO (23:26)
[2021-07-30] MEDS: LORazepam 0.5 MG TABLET PO (23:26)
[2021-07-31] VITALS (7 sets, daily range): BP systolic 107–151; BP diastolic 48–78; PULSE 68–88; RESP 13–18; TEMP 36.3–37.7; O2SAT 96–99; BMI 26.9
--- NOTE | 2021-07-31 02:56 | PC.NURSE ---
Patient alert and oriented x 3. Patient states she came because she was in too much pain ambulating and she should not stay at home alone. Patient c/o back and neck pain medicated with relief. Patient on iv lasix 60mg iv push voiding in purewick because has too much pain moving. Ultrasound of legs done negative for DVT. Will continue to monitor.
[2021-07-31 03:12] LABS: Appearance Urine CLEAR; Color Urine YELLOW; Glucose Urine UA NEG (NEG); Leukocyte Esterase Urine NEG (NEG); Nitrite Urine NEG (NEG); Urine Blood NEG (NEG); Urine Ketones NEG (NEG); Urine Protein NEG (NEG-TRACE)
[2021-07-31] MEDS: oxyCODONE HCl Immed Release 5 MG TABLET PO (05:42)
[2021-07-31] MEDS: Omeprazole 20 MG CAPSULE.DR PO (05:42)
[2021-07-31 05:45] LABS: MANUAL DIFF FLAG NO
[2021-07-31 05:49] LABS: Basophils Percent Auto 0.4 % (0-2); Eosinophils Absolute Auto 0.3 X10*3/uL (0.0-0.4); Eosinophils Percent Auto 3.5 % (0-4); Hematocrit 33.6 % (37.0-47.0); Hemoglobin 10.6 g/dl (12.0-16.0); Imm Gran Abs Auto 0.03 X10*3/uL (0.00-0.03); Imm Gran Pct Auto 0.3 % (0.0-0.4); Lymphocytes Absolute Auto 1.3 X10*3/uL (1.2-4.9); Lymphocytes Percent Auto 13.6 % (20-40); Mean Corpuscular HGB Conc 31.5 g/dl (31.0-35.0); Mean Corpuscular Hemoglobin 28.8 pg (27.0-33.0); Mean Corpuscular Volume 91.3 fL (80.0-98.0); Mean Platelet Volume 9.3 fL (9.4-12.3); Monocytes Absolute Auto 1.1 X10*3/uL (0.1-1.2); Monocytes Percent Auto 11.4 % (2-11); Neutrophils Absolute Auto 6.9 x10*3/uL (2.0-8.3); Neutrophils Percent Auto 70.8 % (45-73); Platelet Count 242 X10*3/uL (160-400); Red Blood Count 3.68 X10*6/uL (4.20-5.50); Red Cell Distribution Width 14.8 % (11.0-16.0); White Blood Count 9.7 X10*3/uL (4.8-10.8)
[2021-07-31 06:10] LABS: Anion Gap 12 (12-20); Blood Urea Nitrogen 20 mg/dL (9-16); Calcium 9.6 mg/dL (8.4-10.2); Carbon Dioxide 32 mmol/L (22-29); Chloride 100 mmol/L (96-108); Creatinine Clr Calc Pharmacy 40.5; Estimated Glomerular Filt Rate 45; Glucose Random 116 mg/dL (60-115); Potassium 3.3 mmol/L (3.3-5.1); Sodium 141 mmol/L (135-145)
[2021-07-31 06:51] LABS: Troponin-I High Sensitivity 51.6 ng/L (<3.5-17.0)
--- NOTE | 2021-07-31 08:30 | CA_ITS ---
Transthoracic Echocardiogram Patient (Last, First, Middle): Vandana Light, Gender: Female Date of : 1935 Age: 86 Procedure Date: 07/31/2021 Procedure Type: Transthoracic Echocardiogram Location: S3W Height: 172.72 cm Weight: 80.29 kg BSA: 1.94 m2 Heart Rate: bpm BP: 124 / 62 mmHg Pattern Clerk: MEÑO Mora MD: Gurwinder Cortez MD Lacquer Coater: Vivek Armas MD Symptoms: leg swelling Study Quality: Technically Difficult ECG Rhythm: Sinus Conclusions: - 1. [id number] LV systolic dysfunction with LVEF of 40 45% with impaired relaxation filling pattern and elevated filling pressures 2. Mildly dilated left atrium 3. Normally functioning bioprosthetic aortic valve in place with mean gradient of 4 mmHg 5. Severe mitral calcification, mitral stenosis cannot be entirely ruled out on this study 6. Moderately elevated right ventricular systolic pressure with significant elevated right atrial pressures 7. No gross pericardial effusion Findings Procedure Information The patient declines contrast. Left Ventricle The left ventricle was not well visualized. The visually estimated ejection fraction is between 40-45%. Regional wall motion abnormalities can not be excluded due to suboptimal endocardial definition. There is paradoxical septal motion consistent with a left bundle branch block. Spectral Doppler is indicative of an impaired relaxation filling pattern. Elevated filling pressures. E/E prime ratio is >15, consistent with elevated filling pressures. Right Ventricle The right ventricle was not well visualized. Atria The left atrium is mildly dilated. Interatrial shunt cannot be excluded. The right atrium was not well visualized. Aortic Valve A bioprosthetic aortic valve is present. The prosthetic aortic valve appears to be functioning normally. The aortic valve was not well visualized. The mean gradient is 4 mmHg. There is no aortic valve regurgitation. Mitral Valve There is mild anterior and severe posterior mitral leaflet thickening. There is severe mitral annular calcification. There is no mitral valve regurgitation. Pulmonic Valve The pulmonic valve was not well visualized. Tricuspid Valve There is mild tricuspid valve regurgitation. Significantly elevated right atrial pressure. Moderate pulmonary hypertension is present. Great Vessels The aorta was not well visualized. The pulmonary artery was not well visualized. Venous The inferior vena cava is moderately dilated and does not collapse with inspiration. Pericardium/Pleural There is no evidence of pericardial effusion. Prior Study Comparison Changes noted compared to prior study dated: 03/12/2017. RV systolic pressure is elevated with significant elevated right atrial pressures. Bioprosthetic aortic valve is present. LV systolic function is reduced Measurements 2D Linear Measurements IVSd: 1.04 0.6-0.9/0.6-1.0 cm LVIDd: 4.06 3.9-5.3/4.2-5.9 cm LVIDd Index: 2.09 2.4-3.2/2.2-3.1 cm/m2 LVIDs: 3.18 2.0-3.6 cm LVPWd: 1.05 0.7-1.1 cm LA Diam: 3.90 2.7-3.8/3.0-4.0 cm LAIDs Index: 2.01 1.5-2.3 cm/m2 LV Mass: 172.31 67-162/88-224 g LV Mass Index: 88.82 43-95/49-115 g/m2 LVOT Diam: 2.00 3.0+(-)1.3 cm Mitral Valve MV Pk E: 1.26 MV PK A: 1.61 MV Decel Time: 162.00 E/A: 0.80 E'Lateral: 5.87 E'Medial: 5.22 E/E' Med: 24.10 E/E' Lat: 21.50 PHT: 47.00 MVA PHT: 4.68 Decel [place]: 7.80 Aortic Valve AoV Pk Sebastian: 1.26 AoV Mn Sebastian: 0.88 AoV VTI: 0.21 AoV Pk Grad: 6.00 Aov Mn Grad: 4.00 TIFFANIE Cont.VTI: 2.43 LVOT LVOT Pk Sebastian: 0.90 LVOT Mn Sebastian: 0.62 LVOT VTI: 0.16 LVOT Pk Grad: 3.00 LVOT Mn Grad: 2.00 LVOT Diam: 2.00 LVOT Area: 3.14 Diastolic Function MV Pk E: 1.26 MV Pk A: 1.61 E/A: 0.80 E'Medial: 5.22 E/E' Med: 24.10 E' Laterial: 5.87 E/E' Lat: 21.50 Right Ventricle TAPSE (mm): 15.00 TVS' Sebastian: 11.00 Tricuspid Valve TR Pk Sebastian: 2.95 TR Pk Grad: 35.00 RA Press: 15.00 RVSP: 50.00 Great Vessels Aorta Sinus of Valsalva: 2.30 2.0-3.5 cm Ao Asc: 2.90 2.1-3.4 cm Ao Arch: 2.80 Updated in Other Vendor System with Status of Final Vivek Armas MD electronically signed on 07/31/2021 2:28:56 PM with status of Final
[2021-07-31] MEDS: Escitalopram Oxalate 5 MG TABLET PO (08:47)
[2021-07-31] MEDS: Furosemide 40 MG/4 ML VIAL IVPUSH (08:47)
[2021-07-31] MEDS: Metoprolol Succinate ER 50 MG TAB.ER.24H PO (08:47)
--- NOTE | 2021-07-31 11:40 | P.PNIM_ITS ---
Subjective Subjective Date of Service: 07/31/21 Interval History: No acute issues overnight. Continues to be chest pain-free Review of Systems Denies chest pain Denies shortness of breath Denies nausea vomiting diarrhea Denies fevers Physical Exam Vital Signs: Vital Signs: Last Vital Signs Temp 99.4 F 07/31/21 07:58 Pulse 88 07/31/21 07:58 Resp 18 07/31/21 07:58 BP 151/67 H 07/31/21 07:58 Pulse Ox 99 07/31/21 07:58 BMI result Body Mass Index 26.9 Const: Other: Awake alert orient x3 in no acute distress Resp: Other: Clear to auscultation bilaterally no rales rhonchi or wheezes Cardio: Other: No S4; positive S1-S2; no S3 murmurs rubs gallops GI: Other: Soft nontender nondistended normoactive bowel sounds Extrem: Other: 2+ edema bilaterally Objective Data Active Medications Acetaminophen (Acetaminophen 325 Mg Tablet) 650 mg PO Q6H PRN PRN Reason: Pain, Mild (Pain Scale 1-3) Hydrocodone Bitart/Acetaminophen (Hydrocodone Bit/Acetam 7.5/325 Tablet) 1 tab PO TID PRN PRN Reason: Pain (Scale Score 4-6) Last Admin: 07/30/21 23:26 Dose: 1 tab Documented by: JUAN ANTONIO Atorvastatin Calcium (Atorvastatin Calcium 20 Mg Tablet) 20 mg PO BEDTIME [facility] Docusate Sodium (Docusate Sodium 100 Mg Capsule) 100 mg PO DAILY PRN PRN Reason: Constipation Enoxaparin Sodium (Enoxaparin Sodium 40 Mg/0.4 Ml Syringe) 40 mg SUBCUT Q24H [facility] Last Admin: 07/30/21 23:22 Dose: 40 mg Documented by: JUAN ANTONIO Escitalopram Oxalate (Escitalopram Oxalate 5 Mg Tablet) 5 mg PO DAILY [facility] Last Admin: 07/31/21 08:47 Dose: 5 mg Documented by: DEAN Furosemide (Furosemide 40 Mg/4 Ml Vial) 40 mg IVPUSH BID@0900,1800 [facility]; Protocol Last Admin: 07/31/21 08:47 Dose: 40 mg Documented by: DEAN Lorazepam (Lorazepam 0.5 Mg Tablet) 0.5 mg PO DAILY PRN PRN Reason: Anxiety Last Admin: 07/30/21 23:26 Dose: 0.5 mg Documented by: JUAN ANTONIO Metoprolol Succinate (Metoprolol Succinate Er 50 Mg Tab.Er.24h) 50 mg PO DAILY [facility]; Protocol Last Admin: 07/31/21 08:47 Dose: 50 mg Documented by: DEAN Omeprazole (Omeprazole 20 Mg Capsule.Dr) 20 mg PO DAILY@0630 [facility] Last Admin: 07/31/21 05:42 Dose: 20 mg Documented by: ZACHARY Ondansetron HCl (Ondansetron Hcl 4 Mg/2 Ml Vial) 4 mg IVPUSH Q8H PRN PRN Reason: Nausea and Vomiting Oxybutynin Chloride (Oxybutynin Chloride Er 5 Mg Tab.Er.24) 15 mg PO BID [facility] Last Admin: 07/31/21 08:48 Dose: 15 mg Documented by: DEAN Potassium Chloride (Potassium Chloride Er 10 Meq Capsule.Er) 10 meq PO DAILY [facility] Last Admin: 07/31/21 08:48 Dose: 10 meq Documented by: DEAN Labs CBC & Chem 7: 07/31/21 05:34 07/31/21 05:34 Labs: Laboratory Results - last 24 hr 07/30/21 07/30/21 07/30/21 19:31 19:31 19:31 MCV 90.1 MCH 29.2 MCHC 32.4 RDW 14.8 Plt Count 217 MPV 9.0 L Immature Gran % (Auto) 0.4 Neut % (Auto) 65.2 Lymph % (Auto) 17.0 L [place] % (Auto) 14.3 H Eos % (Auto) 2.8 Baso % (Auto) 0.3 Lymph # (Auto) 1.3 [place] # (Auto) 1.1 Eos # (Auto) 0.2 Baso # (Auto) 0.0 Abs Immat Gran (auto) 0.03 Absolute Neuts (auto) 4.8 Absolute Nucleated RBC 0.000 Nucleated RBC % (auto) 0.0 Anion Gap 10 L Estim Creat Clear Calc TNP Estimated GFR 48 Random Glucose 116 H Calcium 8.8 D Total Bilirubin 0.4 AST 22 ALT 11 Alkaline Phosphatase 94 B-Natriuretic Peptide 190 H Total Protein 6.1 L Albumin 3.3 L Urine Color Urine Appearance Urine pH Ur Specific [place] Urine Protein Urine Glucose (UA) Urine Ketones Urine Blood Urine Nitrite Ur Leukocyte Esterase COVID-19 (ELIANE) COVID-19 Clin Com 07/30/21 07/31/21 07/31/21 19:31 03:03 05:34 MCV 91.3 MCH 28.8 MCHC 31.5 RDW 14.8 Plt Count 242 MPV 9.3 L Immature Gran % (Auto) 0.3 Neut % (Auto) 70.8 Lymph % (Auto) 13.6 L [place] % (Auto) 11.4 H Eos % (Auto) 3.5 Baso % (Auto) 0.4 Lymph # (Auto) 1.3 [place] # (Auto) 1.1 Eos # (Auto) 0.3 Baso # (Auto) 0.0 Abs Immat Gran (auto) 0.03 Absolute Neuts (auto) 6.9 Absolute Nucleated RBC 0.000 Nucleated RBC % (auto) 0.0 Anion Gap Estim Creat Clear Calc Estimated GFR Random Glucose Calcium Total Bilirubin AST ALT Alkaline Phosphatase B-Natriuretic Peptide Total Protein Albumin Urine Color YELLOW Urine Appearance CLEAR Urine pH 6.0 Ur Specific [place] 1.010 Urine Protein NEG Urine Glucose (UA) NEG Urine Ketones NEG Urine Blood NEG Urine Nitrite NEG Ur Leukocyte Esterase NEG COVID-19 (ELIANE) Negative COVID-19 Clin Com See Note 07/31/21 05:34 MCV MCH MCHC RDW Plt Count MPV Immature Gran % (Auto) Neut % (Auto) Lymph % (Auto) [place] % (Auto) Eos % (Auto) Baso % (Auto) Lymph # (Auto) [place] # (Auto) Eos # (Auto) Baso # (Auto) Abs Immat Gran (auto) Absolute Neuts (auto) Absolute Nucleated RBC Nucleated RBC % (auto) Anion Gap 12 Estim Creat Clear Calc 40.5 Estimated GFR 45 Random Glucose 116 H Calcium 9.6 D Total Bilirubin AST ALT Alkaline Phosphatase B-Natriuretic Peptide Total Protein Albumin Urine Color Urine Appearance Urine pH Ur Specific [place] Urine Protein Urine Glucose (UA) Urine Ketones Urine Blood Urine Nitrite Ur Leukocyte Esterase COVID-19 (ELIANE) COVID-19 Clin Com Assessment and Plan (1) Lower extremity edema: Status: Acute (2) Inability to walk: Status: Acute (3) Elevated troponin: Status: Acute Plan 86-year-old female with past medical history of chronic peripheral? edema presents to the hospital with complaints of worsening lower extremity edema inability to walk as a result 1.Lower extremity edema -echocardiogram to to evaluate cardiac function -PT -continue lasix -follow renals /divalents 2.Elevated troponin -? denies any chest pain -?EKG shows normal sinus rhythm with no ST T-wave changes suggestive of ACS - trending down 3.Chronic back pain -PT eval -continue home medications 4.Anxiety -? continue lorazepam Hospitalization required for ongoing diuresis and physical therapy evaluation. Hopefully switch to p.o. in a.m. Quality Stroke Does the patient have a stroke diagnosis?: No VTE Prior VTE?: No VTE Risk Level:: Medical - moderate - high VTE Device Contraindication: Treatment Not Indicated VTE Drug Contraindication: N/A - Med Ordered
--- NOTE | 2021-07-31 15:49 | MHC.CM.PN ---
IMM 07/31/21, CM MET W/PT WHO IS A&0 AT TIME OF ASSESSMENT, PT REPORTS SHE LIVES ALONE, IS INDEPENDENT W/CARE, USES A WALKER OR CANE ON OCCASION, GRAB BARS IN BR AND HAS A SHOWER BENCH, PT DENIES HOME SERVICES BUT REPORTS THEY ARE TRYING TO GET A [employer] W/ELDER SERVICES, PT REPORTS SHE IS OPEN TO HOME SERVICES UPON D/C HOWEVER PT HAS RECOMMENDED STR, PCP VERIFIED CHRISTA GUTIERREZ, HCP VERIFIED PT'S SON MELLY FOSTER, PT CONSIDERING CHANGING OR ADDING DTRS GRICEL AND KRISTAL, PT REPORTS SHE IF FULLY VACCINATED X3. D/C PLAN: HOME W/SERVICES VS STR, TRANSPORT PENDING DISPO COVID VACCINE: PFIZER X2 AT [facility] AND MODERNA BOOSTER AT [facility]
--- NOTE | 2021-07-31 15:58 | MHC.CM.PN ---
CM RECEIVED CALL FROM SON/HCP MELLY WHO REPORTED HE HAD MULTIPLE CONCERNS FOR PT SHE IS NOT COMPLIANT W/MEDS AND OFTEN DOESN'T TAKE HER LASIX BECAUSE IT TAKES HER TOO LONG TO WALK TO THE BR, PER MELLY PT WILL ALSO PICK AND CHOSE HER MEDS AND HAS TAKEN THEM DIRECTLY FROM THE BOTTLE. MELLY REPORTS PT WAS DOING WELL OVER THE SUMMER HOWEVER HAS DECLINED THIS WINTER AND HAS HAD 4-5 ADMISSIONS/ED VISITS SINCE 05/18/21. MELLY ALSO REPORTS PT HAS HAD SEVERAL VISITS TO [facility] AND PT STARTED COMING TO [place] BECAUSE THEY WANTED HER IN STR AND/OR LTC. MELLY REPORTS HE HAS BEEN WORKING WITH PT'S PCP CHRISTA GUTIERREZ TO GET SERVICES FOR PT AT HOME HOWEVER HE FEELS SHE IS NOT SAFE TO BE HOME ALONE ANYMORE. MELLY IS AWARE THAT WE CANNOT FORCE A PT TO GO TO STR UNLESS HER HCP IS INVOKED AND CURRENTLY IT IS NOT. MELLY IS AWARE PT IS BEING RECOMMENDED STR AND WILL CONTACT CM TOMORROW 08/01 WITH A LIST OF SNF'S WHERE PT'S PCP HAS PRIVILEGES, NO REFERRALS PLACED AT THIS TIME. MELLY HAS BEEN GIVEN MAIN NUMBER. THIS CM WAS GOING TO COMPLETE A NEW HCP W/PT HOWEVER PT WAS CONFUSED, BELIEVING SHE WAS AT HOME AND CALLING OUT FOR [facility] WHEN PT COMPLETED HER EVAL.
[2021-07-31] MEDS: HYDROcodone Bit/Acetam 7.5/325 TABLET 1 TAB PO ×2 (18:18→23:34)
[2021-07-31] MEDS: Atorvastatin Calcium 20 MG TABLET PO (21:21)
[2021-07-31] MEDS: Enoxaparin Sodium 40 MG/0.4 ML SYRINGE SUBCUT (21:22)
[2021-07-31] MEDS: LORazepam 0.5 MG TABLET PO (23:34)
[2021-08-01 03:18] VITALS: BP 120/60; PULSE 64; RESP 18; TEMP 36.1; O2SAT 97
[2021-08-01] MEDS: Omeprazole 20 MG CAPSULE.DR PO (06:00)
[2021-08-01 06:12] LABS: MANUAL DIFF FLAG NO
[2021-08-01] MEDS: HYDROcodone Bit/Acetam 7.5/325 TABLET 1 TAB PO (06:16)
[2021-08-01 06:17] LABS: Basophils Percent Auto 0.4 % (0-2); Eosinophils Absolute Auto 0.3 X10*3/uL (0.0-0.4); Eosinophils Percent Auto 4.2 % (0-4); Hematocrit 33.7 % (37.0-47.0); Hemoglobin 10.7 g/dl (12.0-16.0); Imm Gran Abs Auto 0.02 X10*3/uL (0.00-0.03); Imm Gran Pct Auto 0.3 % (0.0-0.4); Lymphocytes Absolute Auto 1.5 X10*3/uL (1.2-4.9); Mean Corpuscular HGB Conc 31.8 g/dl (31.0-35.0); Mean Corpuscular Hemoglobin 28.8 pg (27.0-33.0); Mean Corpuscular Volume 90.8 fL (80.0-98.0); Mean Platelet Volume 9.1 fL (9.4-12.3); Monocytes Absolute Auto 0.8 X10*3/uL (0.1-1.2); Monocytes Percent Auto 11.2 % (2-11); Neutrophils Absolute Auto 4.7 x10*3/uL (2.0-8.3); Neutrophils Percent Auto 63.9 % (45-73); Platelet Count 242 X10*3/uL (160-400); Red Blood Count 3.71 X10*6/uL (4.20-5.50); Red Cell Distribution Width 14.7 % (11.0-16.0); White Blood Count 7.3 X10*3/uL (4.8-10.8)
[2021-08-01 06:59] LABS: Alanine Aminotransferase 13 U/L (0-31); Albumin Level 3.2 g/dL (3.5-5.0); Alkaline Phosphatase 84 U/L (39-117); Anion Gap 14 (12-20); Aspartate Amino Transferase 22 U/L (5-31); Bilirubin Total 0.9 mg/dL (0.0-1.0); Blood Urea Nitrogen 21 mg/dL (9-16); Calcium 8.9 mg/dL (8.4-10.2); Carbon Dioxide 32 mmol/L (22-29); Chloride 97 mmol/L (96-108); Creatinine Clr Calc Pharmacy 43.9; Estimated Glomerular Filt Rate 49; Glucose Fasting 87 mg/dL (60-99); Potassium 2.8 mmol/L (3.3-5.1); Sodium 140 mmol/L (135-145); Total Protein 6.1 g/dL (6.5-8.0)
[2021-08-01 07:32] VITALS: BP 112/55; PULSE 115; RESP 18; TEMP 36.2; O2SAT 92
[2021-08-01 08:19] LABS: Magnesium 1.3 mg/dL (1.6-2.6)
[2021-08-01] MEDS: Magnesium Sulfate/H2O 2 GM/50 ML PIGGYBACK IV (08:40)
[2021-08-01] MEDS: Potassium Chloride ER 20 MEQ TAB.ER.PRT 40 MEQ PO ×2 (08:59→15:37)
[2021-08-01] MEDS: Escitalopram Oxalate 5 MG TABLET PO (08:59)
[2021-08-01] MEDS: Acetaminophen 325 MG TABLET 650 MG PO (09:00)
[2021-08-01] MEDS: Metoprolol Succinate ER 50 MG TAB.ER.24H PO (09:07)
[2021-08-01 11:43] VITALS: BP 114/54; PULSE 69; RESP 18; TEMP 36.5; O2SAT 97
--- NOTE | 2021-08-01 12:32 | P.DS_ITS ---
DS: Providers Provider Date of Service: 08/01/21 Date of admission: 07/30/21 22:26 Date of discharge: 08/01/21 Primary care physician: Efra Sue MD DS: Diagnosis Discharge Diagnosis (1) Lower extremity edema: Status: Acute (2) Inability to walk: Status: Acute (3) Elevated troponin: Status: Acute DS: Summary Hospital Course Hospital Course: 86-year-old female with past medical history of aortic valve disease status post TAVR, arthritis,? hypertension,? chronic peripheral edema on Lasix presents to the hospital with difficulty walking due to increased swelling in her legs.? Patient reports compliance with her Lasix, but reports that she has had difficulty with walking for the past 2-3 days due to? significant increased in her lower extremities.? Patient denies any shortness of breath, no orthopnea or PND, no chest pain, no palpitations, no abdominal pain nausea or vomiting, no diarrhea constipation, no urinary symptoms.? No numbness tingling or weakness.? On arrival to the ED patient hemodynamically stable with no significant abnormal vitals Labs are significant for WBC count of 9.7, hemoglobin of 10.6, hematocrit 33.6, troponin of 55.2, BNP of 190, UA negative, chest x-ray shows chest x-ray demonstrating minimal upper zone redistribution suggesting mildly elevated left ventricular end-diastolic pressure but no gross CHF Hospital Couse Patient admitted, aggressively diuresed with IV Lasix. Divalents were monitored and repleted as indicated. Seen by physical therapy who recommends short-term rehab. At this point in time she is medically stable for discharge and will be transferred to short-term rehab. .. Estimated stay less than 30 days. Time Spent with Patient Time attestation: Total time spent providing and/or coordinating discharge services: Discharge coordination time: Greater than 30 minutes Quality: Stroke Does the patient have a stroke diagnosis?: No Physical Exam Vital Signs: Vital Signs: Last Vital Signs Temp 97.7 F 08/01/21 11:43 Pulse 69 08/01/21 11:43 Resp 18 08/01/21 11:43 BP 114/54 L 08/01/21 11:43 Pulse Ox 97 08/01/21 11:43 BMI result Body Mass Index 26.9 Const: Other: Awake alert orient x3 in no acute distress Resp: Other: Clear to auscultation bilaterally no rales rhonchi or wheezes Cardio: Other: No S4; positive S1-S2; no S3 murmurs rubs gallops GI: Other: Soft nontender nondistended normoactive bowel sounds Extrem: Other: trace- 1+ edema bilaterally DS: Data Data Completed and Pending Labs on day of discharge: Laboratory Results - last 24 hr 08/01/21 08/01/21 05:44 05:44 WBC 7.3 RBC 3.71 L Hgb 10.7 L Hct 33.7 L MCV 90.8 MCH 28.8 MCHC 31.8 RDW 14.7 Plt Count 242 MPV 9.1 L Immature Gran % (Auto) 0.3 Neut % (Auto) 63.9 Lymph % (Auto) 20.0 [place] % (Auto) 11.2 H Eos % (Auto) 4.2 H Baso % (Auto) 0.4 Lymph # (Auto) 1.5 [place] # (Auto) 0.8 Eos # (Auto) 0.3 Baso # (Auto) 0.0 Abs Immat Gran (auto) 0.02 Absolute Neuts (auto) 4.7 Absolute Nucleated RBC 0.000 Nucleated RBC % (auto) 0.0 Sodium 140 Potassium 2.8 L Chloride 97 Carbon Dioxide 32 H Anion Gap 14 BUN 21 H Creatinine 1.06 Estim Creat Clear Calc 43.9 Estimated GFR 49 Fasting Glucose 87 Calcium 8.9 D Magnesium 1.3 L* Total Bilirubin 0.9 AST 22 ALT 13 Alkaline Phosphatase 84 Total Protein 6.1 L Albumin 3.2 L Discharge Plan Discharge Patient Disposition: Xfer Inpatient Rehab Fac Discharge Diagnosis: Lower extremity edema Referrals: Efra Sue MD [Primary Care Provider] - 1 Week Discharge Medications: Continued furosemide 40 mg tablet 40 mg PO DAILY 0RF oxybutynin chloride 15 mg tablet extended release 24 hr 15 mg PO BID 0RF metoprolol succinate 50 mg tablet extended release 24 hr 50 mg PO DAILY 0RF citalopram 10 mg tablet 10 mg PO DAILY 0RF potassium chloride 10 mEq tablet extended release 1 tab PO DAILY 0RF lorazepam 0.5 mg tablet 1 tab PO DAILY PRN (Reason: Anxiety) 0RF hydrocodone-acetaminophen 7.5-325 mg tablet 1 tab PO TID PRN (Reason: Pain (Scale Score 4-6)) 0RF omeprazole 20 mg capsule,delayed release(DR/EC) 20 mg PO DAILY 0RF rosuvastatin 10 mg tablet 10 mg PO BEDTIME 0RF Discharge Orders: Discharge Order (Routine); Ordered 08/01/21 Ordered By: Cooper Leahy Diet: advance to usual diet Activity on Discharge: As tolerated Stand Alone Forms: Patient Portal Discharge page Care Plan Goals: Rehab as per receiving facility Health Concerns: Maintain highest level of function Plan of Treatment: As per receiving facility Assessment: As per discharge summary
--- NOTE | 2021-08-01 14:29 | MHC.CM.PN ---
nurse school childcare attendant note electronic meecical record reviewed , along with case discussed with staff nurse and hospitalist met with patient and reviewed nursing facilities with her that doctor cynthia HAS PRIVELGES AT . AFTER MUCH DISCUSSIONS WITH PATIENT SHE STRONGLY SPOKE WITH SON MELLY AND DAUGHTER GRICEL , DR MARMOLEJO OFFICE MELLY CULP, AND DR SHUKLA, . AND PATIENT . DR MARMOLEJO OFFICE INFORMED ME THAT THEY HAVE RECENLY FILED ELDER AT RISK AT [facility] ON HER AND THAT SHE ALREADY Hd a popen case renal case manager there salty dr shukla went back to talk at length with patient and dhe then agrred to go to the [facility] ,comnfirmed again acceptance and bed availabiltiy and patien t will be transferred via [facility] at 4pm SPOKE WITH IZZY THEY ARE AWARE THAT PATIENT IS ON OBSERVATION STATUS AND WILL BE GOING IN ON MEDICARE WAIVER) DISCHARGED PLAN TO THE [facility] FOR STR . TO BE TRANSPORTED [facility]IA [facility] BOTH SON AND DTR ARE ARE OD DISCHARGE DISPOSITON AND TIME OF TRANSPORT
== END 2021-08-01 17:15 ==
LOC: HO.ED 21:40 → HO.EDOVER 22:37 → HO.S3 07-31 03:20
PROVIDERS: Admitting Provider Internal Medicine; Emergency Provider Emergency Medicine Emergency Medical Services; PCP Internal Medicine; Visit Provider Hospitalist
DX: R60.0 Localized edema (principal); R53.1 Weakness; R77.8 Other specified abnormalities of plasma proteins; I44.7 Left bundle-branch block, unspecified; R26.2 Difficulty in walking, not elsewhere classified; G89.29 Other chronic pain; I10 Essential (primary) hypertension; K21.9 Gastro-esophageal reflux disease without esophagitis; Z20.822 Contact with and (suspected) exposure to COVID-19; Z98.890 Other specified postprocedural states; Z88.6 Allergy status to analgesic agent; Z88.1 Allergy status to other antibiotic agents; Z91.038 Other insect allergy status; Z91.040 Latex allergy status; Z79.82 Long term (current) use of aspirin; Z79.899 Other long term (current) drug therapy
CPT/HCPCS: 36415; 71045; 80048; 80053; 81003; 83735; 83880; 84484; 85025; 87635; 93005; 93306; 93970; 96365; 96366; 96372; 96375; 97163; 99218; 99285; J1650; J1940; J3475

== ENCOUNTER 2021-10-15 13:27 | Outpatient (REF) | payer MEDICARE, OTHER, SELFPAY ==
--- NOTE | ~2021-10-15 | US_ITS ---
EXAMINATION: US VENOUS ULTRASOUND WITH DOPPLER LOWER EXTREMITY, RIGHT CLINICAL INFORMATION: Swelling COMPARISON: Previous exam most recent July 2021 TECHNIQUE: Ultrasound of the deep veins is performed from the hip to the calf with compression sonography and color and pulse Doppler assessment. Spectral analysis with color-flow imaging is performed. FINDINGS: There is normal venous compression and respiratory variation and augmented flow. The visualized common femoral vein, superficial femoral vein, profunda femoral vein, and popliteal vein shows no evidence of deep venous thrombosis. Calf veins are not well visualized due to edema. There is no significant popliteal fossa cyst. There is right groin lymphadenopathy. US/US venous duplex LE RT IMPRESSION: No DVT demonstrated in the right lower extremity. Calf veins are not well visualized due to edema.
== END 2021-10-15 13:28 | disposition home or self-care (01) ==
LOC: HO.US 13:27
PROVIDERS: Visit Provider Internal Medicine
DX: R60.0 Localized edema (principal); M79.661 Pain in right lower leg
CPT/HCPCS: 93971